=== PATIENT | female | born 1970 | race Caucasian/White ===

== ENCOUNTER 2025-02-01 12:12 | Observation (INO) ==
[2025-02-01 13:26] LABS: Basophils # (auto) 0.04 K/uL (0.00-0.20); Basophils % (auto) 0.6 %; Eosinophils # (auto) 0.07 K/uL (0.00-0.50); Hematocrit (blood only) 40.9 % (37.0-47.0); Hemoglobin 13.7 g/dl (12.0-16.0); Immature Granulocytes # (auto) 0.02 K/uL (0.01-0.20); Immature Granulocytes % (auto) 0.3 %; Lymphocytes # (auto) 2.37 K/uL (1.20-3.40); Lymphocytes % (auto) 35.5 %; Mean Corpuscular Hemoglobin 26.7 pg (25.0-34.0); Mean Corpuscular Hgb Conc 33.5 g/dL (32.0-36.0); Mean Corpuscular Volume 79.7 fL (80.0-100.0); Monocytes # (auto) 0.38 K/uL (0.11-0.59); Monocytes % (auto) 5.7 %; Neutrophils % (auto) 56.9 %; Platelet Count 254 K/uL (130-400); RDW Standard Deviation 37.1 fL (36.4-46.3); Red Blood Count 5.13 M/uL (4.20-5.40); White Blood Count 6.68 K/ul (4.8-10.8)
[2025-02-01 13:47] LABS: Albumin Level 4.4 gm/dl (3.4-5.0); Anion Gap 9 (3-11); Bilirubin,Total 0.9 mg/dl (0.2-1.0); Calcium 9.7 mg/dl (8.6-10.3); Carbon Dioxide 27 mmol/L (21-32); Chloride 102 mmol/L (98-107); Partial Thromboplastin Time 27 Seconds (21-31); Potassium 3.9 mmol/L (3.5-5.1); Prothrombin Time 10.6 Seconds (9.0-12.0); Sodium 138 mmol/L (136-145)
[2025-02-01 13:48] LABS: Troponin I High Sensitivity < 2.3 pg/ml (0-14)
[2025-02-01 13:53] LABS: Alanine Aminotransferase 16 U/L (7-52); Albumin Globulin Ratio 1.5 (0.9-2); Alkaline Phosphatase 46 U/L (34-104); Aspartate Aminotransferase 17 U/L (13-39); BUN Creatinine Ratio 20.6 (10-20); Blood Urea Nitrogen 13 mg/dl (6-23); Globulin 2.9 gm/dl (2.5-4.0); Glucose 171 mg/dl (70-99(Fasting)); Total Protein 7.3 gm/dl (6.0-8.3)
--- NOTE | 2025-02-01 14:12 | XRay Report ---
XR chest 1V not portable CLINICAL HISTORY: Chest pain, nonspecific COMPARISON STUDY: None FINDINGS: Heart size and pulmonary vasculature are normal. No effusion, consolidation, or pneumothora x. No acute osseous finding seen. IMPRESSION: No acute findings. ACT 112: Negative or not required by law. Electronically signed by: Zafar Banda M.D. 02/01/2025 2:11 PM
[2025-02-01 15:03] LABS: Adenovirus PCR Not Detected (NotDetected); Bordetella parapertussis PCR Not Detected (NotDetected); Bordetella pertussis PCR Not Detected (NotDetected); Chlamydia pneumoniae PCR Not Detected (NotDetected); Coronavirus 229E PCR Not Detected (NotDetected); Coronavirus CoV-2 (COVID19)PCR Not Detected (NotDetected); Coronavirus HKU1 PCR Not Detected (NotDetected); Coronavirus NL63 PCR Not Detected (NotDetected); Coronavirus OC43PCR Not Detected (NotDetected); Human Metapneumovirus PCR Not Detected (NotDetected); Influenza A PCR Not Detected (NotDetected); Influenza B PCR Not Detected (NotDetected); Mycoplasma pneumoniae PCR Not Detected (NotDetected); Parainfluenza Virus 1 PCR Not Detected (NotDetected); Parainfluenza Virus 2 PCR Not Detected (NotDetected); Parainfluenza Virus 3 PCR Not Detected (NotDetected); Parainfluenza Virus 4 PCR Not Detected (NotDetected); Respiratory Syncytial VirusPCR Not Detected (NotDetected); Rhinovirus/Enterovirus PCR Not Detected (NotDetected)
--- NOTE | 2025-02-01 18:17 | Emergency Department Note ---
Impression & Plan Chest pain ED Provider Note NAME: ULICES VÁSQUEZ AGE: 55 SEX: F : 1970 ARRIVES VIA: Ambulance INFORMANT: Patient, ED PROVIDER(S): Ag Walker DO CHIEF COMPLAINT: Chest pain HPI: The patient is a 55-year-old female who presented to the emergency department for an evaluation of chest pain. The patient describes anterior chest pain with radiation to the arm as well as the jaw. She states it is intermittent. It is sometimes worsened with exertion. She called 911 today and presented by ambulance. She was treated with nitroglycerin prior to arrival with some improvement of her symptoms. The patient denies having any lower extremity swelling greater than usual. She denies having any abdominal pain. ROS: See above HPI for pertinent positives & negatives. A total of 10 systems reviewed and were otherwise negative. PAST MEDICAL HISTORY: See Below PAST SURGICAL HISTORY: See Below FAMILY HISTORY: See Below SOCIAL HISTORY: See Below HOME MEDICATIONS: See Below ALLERGIES: See Below VITALS: See Below PHYSICAL EXAMINATION: GENERAL: Patient is awake alert in no acute distress patient is resting comfortably and showing no signs of anxiety EYES: The conjunctivae are clear. The pupils are round and reactive. EARS, NOSE, MOUTH AND THROAT: The nose is without any evidence of any deformity. NECK: The neck is nontender and supple. RESPIRATORY: Normal respiratory effort is noted there is no evidence of wheezing rhonchi or rales CARDIOVASCULAR: Regular rate and rhythm noted there no murmurs rubs or gallops normal S1 normal S2. GASTROINTESTINAL: The abdomen is soft. Abdomen is nontender. MUSCULOSKELETAL/EXTREMITIES: There is no evidence of gross deformity full range of motion is noted in the hips and shoulders. SKIN: There is no obvious evidence of any rash. There are no petechiae, pallor or cyanosis noted. NEUROLOGIC: Patient is awake alert and oriented x3 MEDICAL DECISION MAKING: The patient is a 55-year-old female who presented to the emergency department for an evaluation of chest pain. The patient describes anterior chest pain with radiation to the arm. It was associated with exertion. She was treated with nitroglycerin prior to arrival. She is allergic to aspirin and was unable to take this medication. I discussed the patient's laboratory and radiographic studies with her. I discussed the limitations of the emergency department workup for chest pain with her. Ultimately she was found to have an elevated heart score. I feel that she would be a better candidate for inpatient management. For this reason I discussed her condition with the on-call [facility] hospitalist. They have agreed to evaluate the patient in the emergency department for further management and disposition. Triage Nursing notes reviewed. Prior medical records reviewed Vital Signs: reviewed and remarkable for no significant abnormalities Differential diagnosis: Cardiac ischemia, aortic dissection, pulmonary embolism, pneumothorax, pneumonia, pericarditis, myocarditis, esophageal rupture, GERD, cholecystitis, pancreatitis, musculoskeletal, as well as other pathologies. ER treatment provided: See below Diagnostics interpreted by me: ECG: EKG was obtained in the emergency department. My interpretation is normal sinus rhythm at 82 bpm. Early transition was noted. There was no acute ST segment abnormalities noted. Cardiac Monitoring: An order was placed for continuous cardiac monitoring. The monitor shows a rate of 79 bpm with sinus rhythm. Laboratory studies: As stated above and show below. Imaging studies: See below. Radiographic imaging was reviewed by myself Consultation(s): I discussed this case with the on-call [facility] hospitalist, Dr. Arellano. Past Med/Surg History Problem List (Updated 02/01/25 @ 21:51 by Ag Walker DO) Chest pain (Acute) Complex renal cyst Incontinence (Chronic) Anal lesion Mesenteric lymphadenitis Pelvic floor dysfunction Bladder infection Hematuria (Acute) Diabetes (Chronic) Stomach problems (Chronic) Migraine (Chronic) Abdominal pain (Acute) Back strain (Acute) Dehydration (Acute) Headache (Acute) Social History Smoking Status: Former smoker Feels Safe at Home: Yes Allergies Allergies Allergy/AdvReac Type Severity Reaction Status Date / Time lidocaine [From Lidoderm] Allergy Severe Rash Verified 02/01/25 20:58 bupropion Allergy Unknown headache Verified 11/11/24 10:15 eletriptan Allergy Unknown RASH Unverified 11/11/24 10:15 lamotrigine Allergy Unknown UNKNOWN Unverified 11/11/24 10:15 latex Allergy Unknown UNKNOWN Verified 11/11/24 10:15 NSAIDS (Non-Steroidal Allergy Unknown UNKNOWN Verified 11/11/24 10:15 Anti-Inflamma sumatriptan Allergy Unknown MIGRAINES Unverified 11/11/24 10:15 WORSE tramadol Allergy Unknown headache Verified 11/11/24 10:15 nitrofurantoin AdvReac Severe Vomiting Verified 02/01/25 20:58 vibegron [From Gemtesa] AdvReac Severe Vomiting Verified 02/01/25 20:58 semaglutide [From Ozempic] AdvReac Intermediate Nausea Verified 11/11/24 10:15 AMITRITYLINE Allergy Unknown UNKNOWN Uncoded 11/11/24 10:15 Home Meds Home Medications Medication Instructions Recorded Confirmed acetaminophen 500 mg tablet 1,000 mg PO Q6H PRN Fever Or Pain 02/01/25 02/01/25 (Tylenol Extra Strength) brimonidine 0.1 % eye drops 1 drp OPB BID 02/01/25 02/01/25 (Alphagan P) dorzolamide 2 % eye drops 1 drp OPB BID 02/01/25 02/01/25 lifitegrast 5 % eye drops in a 1 drp OPB BID 02/01/25 02/01/25 dropperette (Xiidra) lisinopril 10 mg tablet 10 mg PO QAM 02/01/25 02/01/25 magnesium oxide 400 mg (241.3 mg 400 mg PO HS 02/01/25 02/01/25 magnesium) tablet metformin 500 mg tablet,extended 1,000 mg PO BIDM 02/01/25 02/01/25 release 24 hr omeprazole 20 mg capsule,delayed 20 mg PO AMHS 02/01/25 02/01/25 release pravastatin 40 mg tablet 40 mg PO QPM 02/01/25 02/01/25 riboflavin (vitamin B2) 400 mg 400 mg PO QAM 02/01/25 02/01/25 tablet tamsulosin 0.4 mg capsule 0.4 mg PO QAM 02/01/25 02/01/25 timolol maleate (PF) 0.5 % eye 1 drp OPB BID 02/01/25 02/01/25 drops in a dropperette Results & Data (ED) Vital Signs Vital Signs - 24 hr 02/01/25 12:27 02/01/25 17:26 02/01/25 17:54 Temperature 36.7 C Temperature Source Temporal Artery Scan Pulse Rate 91 H 75 Pulse Rate [Apical] 80 Pulse Rate from SpO2 Sensor Respiratory Rate 20 16 Blood Pressure 145/86 H Blood Pressure [Right Arm] 148/96 H Blood Pressure Mean 105 Blood Pressure Mean [Right Arm] 113 Blood Pressure Position Sitting Pulse Oximetry 96 96 Oxygen Delivery Method Room Air Sepsis Recent Fever Within 48 Hours No Sepsis New/Unexplained Change in Mental Status N/A Sepsis Action Taken by Nursing No Action Required 02/01/25 18:30 02/01/25 19:03 02/01/25 20:45 Temperature Temperature Source Pulse Rate 82 79 77 Pulse Rate [Apical] Pulse Rate from SpO2 Sensor 82 79 77 Respiratory Rate 22 19 12 Blood Pressure 136/95 153/109 H Blood Pressure [Right Arm] Blood Pressure Mean 108 123 Blood Pressure Mean [Right Arm] Blood Pressure Position Pulse Oximetry 93 95 95 Oxygen Delivery Method Sepsis Recent Fever Within 48 Hours Sepsis New/Unexplained Change in Mental Status Sepsis Action Taken by Nursing 02/01/25 21:02 02/01/25 21:21 Temperature Temperature Source Pulse Rate 80 79 Pulse Rate [Apical] Pulse Rate from SpO2 Sensor Respiratory Rate 18 Blood Pressure 151/96 H Blood Pressure [Right Arm] Blood Pressure Mean 111 Blood Pressure Mean [Right Arm] Blood Pressure Position Pulse Oximetry 94 Oxygen Delivery Method Sepsis Recent Fever Within 48 Hours Sepsis New/Unexplained Change in Mental Status Sepsis Action Taken by [facility]pc Medications Current Medication List: was personally reviewed by me Laboratory Data Attestation: I reviewed the patient's lab results. 02/01/25 13:06 02/01/25 13:06 Lab Results 02/01/25 02/01/25 02/01/25 Range/Units 13:06 19:14 21:01 WBC 6.68 (4.8-10.8) K/ul RBC 5.13 (4.20-5.40) M/uL Hgb 13.7 (12.0-16.0) g/dl Hct 40.9 (37.0-47.0) % MCV 79.7 L (80.0-100.0) fL MCH 26.7 (25.0-34.0) pg MCHC 33.5 (32.0-36.0) g/dL RDW Std Deviation 37.1 (36.4-46.3) fL RDW Coeff of Marcia 13.0 (11.5-14.5) % Plt Count 254 (130-400) K/uL MPV 11.0 (9.4-12.4) fL Immature Gran % (Auto) 0.3 % Neut % (Auto) 56.9 % Lymph % (Auto) 35.5 % [place] % (Auto) 5.7 % Eos % (Auto) 1.0 % Baso % (Auto) 0.6 % Neut # (Auto) 3.80 (1.40-6.50) K/uL Lymph # (Auto) 2.37 (1.20-3.40) K/uL [place] # (Auto) 0.38 (0.11-0.59) K/uL Eos # (Auto) 0.07 (0.00-0.50) K/uL Baso # (Auto) 0.04 (0.00-0.20) K/uL Immature Gran # (Auto) 0.02 (0.01-0.20) K/uL PT 10.6 (9.0-12.0) Seconds INR 1.0 (0.9-1.1) APTT 27 (21-31) Seconds PTT Ratio 1.0 Sodium 138 (136-145) mmol/L Potassium 3.9 (3.5-5.1) mmol/L Chloride 102 (98-107) mmol/L Carbon Dioxide 27 (21-32) mmol/L Anion Gap 9 (3-11) BUN 13 (6-23) mg/dl Creatinine 0.63 (0.6-1.2) mg/dl Est Cr Clr Drug Dosing Not Reportable eGFR 104.05 BUN/Creatinine Ratio 20.6 H (10-20) Glucose 171 H (70-99(Fasting)) mg/dl POC Glucose 139 H (70-99) mg/dl Calcium 9.7 (8.6-10.3) mg/dl Total Bilirubin 0.9 (0.2-1.0) mg/dl AST 17 (13-39) U/L ALT 16 (7-52) U/L Alkaline Phosphatase 46 (34-104) U/L Troponin I High Sens < 2.3 < 2.3 (0-14) pg/ml Total Protein 7.3 (6.0-8.3) gm/dl Albumin 4.4 (3.4-5.0) gm/dl Globulin 2.9 (2.5-4.0) gm/dl Albumin/Globulin Ratio 1.5 (0.9-2) Adenovirus (PCR) Not Detected (NotDetected) B. pertussis DNA (PCR) Not Detected (NotDetected) B.parapertussis DNA PCR Not Detected (NotDetected) C. pneumoniae DNA (PCR) Not Detected (NotDetected) Coronavirus OC43 (PCR) Not Detected (NotDetected) Coronavirus HKU1 (PCR) Not Detected (NotDetected) Coronavirus 229E (PCR) Not Detected (NotDetected) SARS-CoV-2 (PCR) Not Detected (NotDetected) Coronavirus NL63 (PCR) Not Detected (NotDetected) Human Metapneumovir PCR Not Detected (NotDetected) Influenza Type A (PCR) Not Detected (NotDetected) Influenza Type B (PCR) Not Detected (NotDetected) M. pneumoniae (PCR) Not Detected (NotDetected) Parainfluenza 1 (PCR) Not Detected (NotDetected) Parainfluenza 2 (PCR) Not Detected (NotDetected) Parainfluenza 3 (PCR) Not Detected (NotDetected) Parainfluenza 4 (PCR) Not Detected (NotDetected) RSV (PCR) Not Detected (NotDetected) Entero/Rhino (PCR) Not Detected (NotDetected) Imaging Data Attestation: I personally reviewed and interpreted this imaging study as follows: My Impression: 1 view chest x-ray was obtained in the emergency department. My interpretation is no free air or definite infiltrate, final report below. Radiologist's Impression: Chest X-Ray 02/01/25 12:31 XR chest 1V not portable CLINICAL HISTORY: Chest pain, nonspecific COMPARISON STUDY: None FINDINGS: Heart size and pulmonary vasculature are normal. No effusion, consolidation, or pneumothorax. No acute osseous finding seen. IMPRESSION: No acute findings. ACT 112: Negative or not required by law. Electronically signed by: Zafar Banda M.D. 02/01/2025 2:11 PM Discharge Plan Visit Data Chief Complaint: Chest Pain ED Provider: Ag Walker Discharge Problem: Chest pain Patient Disposition: Being Evaluated by Hospitalist Forms Stand Alone Forms: My [facility] Prescriptions Prescriptions: No Action lisinopril 10 mg tablet 10 mg PO QAM metformin 500 mg tablet extended release 24 hr 1,000 mg PO BIDM dorzolamide 2 % drops 1 drp OPB BID riboflavin (vitamin B2) 400 mg Tablet 400 mg PO QAM timolol maleate (PF) 0.5 % dropperette 1 drp OPB BID Xiidra 5 % dropperette 1 drp OPB BID pravastatin 40 mg tablet 40 mg PO QPM magnesium oxide 400 mg (241.3 mg magnesium) tablet 400 mg PO HS omeprazole 20 mg capsule,delayed release(DR/EC) 20 mg PO AMHS brimonidine [Alphagan P] 0.1 % drops 1 drp OPB BID acetaminophen [Tylenol Extra Strength] 500 mg Tablet 1,000 mg PO Q6H PRN (Reason: Fever Or Pain) tamsulosin 0.4 mg capsule 0.4 mg PO QAM Referrals Referrals: Shikha Deras MD [Primary Care Provider] -
--- NOTE | 2025-02-01 20:39 | History & Physical Report ---
Date of Service February 01, 2025 Assessment & Plan (1) Chest pain: (2) Type 2 diabetes mellitus: Plan 55-year-old female PMHx T2DM complicated by gastroparesis, GERD, and HLD presenting for chest pain x 4 days. ED evaluation reveals no leukocytosis, normal H&H, grossly CMP BUN/creatinine ratio 20.6, and troponin x 2 < 2.3; BioFire negative; CXR WNL; EKG normal sinus rhythm at 82 bpm. 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 History of panic attacks and states this feels similar; has not had a panic attack in "years". - EKG NSR, rate 82 bpm; Trop x 2 < 2.3; Echo pending - CBC WNL, CMP WNL with exception of ratio 20.6; Lipids pending am, on pravastatin at baseline - Tylenol prn pain/fever; Maalox 30mL po q4hr indigestion - Psych liaison consult placed to discuss stress/history of panic- appreciate input + recs #T2DM H/o DMT2; home regimen of metformin - A1c pending; continue metformin - No SSI added at admission; add if prolonged stay - Adjust regimen as needed #GERD- Omeprazole Dispo: Admit, med/tele VTE Prophylaxis: Lovenox This document was dictated utilizing [employer]. Please excuse any grammatical errors that may be secondary to use of this software. Admission and Anticipated Discharge Date Admission Date: 02/01/2025 History of Present Illness Chief Complaint: Chest pain Primary Care Provider: Shikha Deras MD 55-year-old female PMHx T2DM complicated by gastroparesis, GERD, and HLD presenting for chest pain x 4 days. Patient arrived via EMS. Chest pain, hea daches, neck pain, and L arm numbness/tingling going for 4 days. States that she has a history of migraines which has been ongoing since . Across forehead, without vision changes from baseline. Patient states that the chest pain is mainly localized to her left chest without radiation, it does cause her to have some SOB. States that the pain comes and goes, is not triggered by anything and can last for duration of 10 minutes to multiple hours. Sometimes when she is standing she feels as though she gets palpitations. She does have some dizziness also with history of vertigo, seems to just have the dizziness feels slightly different. Patient reports that she has a history of panic attacks and she has been under a lot of increased stress over the past week. Prior panic attacks years ago, but started as chest pain and headaches so she thinks that this may be similar. Overall denying abdominal pain, N/V/D/C, weakness, syncope, LUTS, or fever/chills. States she came to the hospital today because she had a ride to get a vomiting. ED evaluation reveals no leukocytosis, normal H&H, grossly CMP BUN/creatinine ratio 20.6, and troponin x 2 < 2.3; BioFire negative; CXR WNL; EKG normal sinus rhythm at 82 bpm. 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 Please see Dr. Arellano's attestation for adjustments/additions to treatment plan. Allergies Allergy/AdvReac Type Severity Reaction Status Date / Time lidocaine [From Lidoderm] Allergy Severe Rash Verified 02/01/25 20:58 amitriptyline Allergy Unknown Unknown Verified 02/02/25 00:05 bupropion Allergy Unknown headache Verified 11/11/24 10:15 eletriptan Allergy Unknown RASH Unverified 11/11/24 10:15 lamotrigine Allergy Unknown UNKNOWN Unverified 11/11/24 10:15 latex Allergy Unknown UNKNOWN Verified 11/11/24 10:15 NSAIDS (Non-Steroidal Allergy Unknown UNKNOWN Verified 11/11/24 10:15 Anti-Inflamma sumatriptan Allergy Unknown MIGRAINES Unverified 11/11/24 10:15 WORSE tramadol Allergy Unknown headache Verified 11/11/24 10:15 nitrofurantoin AdvReac Severe Vomiting Verified 02/01/25 20:58 vibegron [From Gemtesa] AdvReac Severe Vomiting Verified 02/01/25 20:58 semaglutide [From Ozempic] AdvReac Intermediate Nausea Verified 11/11/24 10:15 Home Medications Medication Instructions Recorded Confirmed Type acetaminophen 500 mg tablet 1,000 mg PO Q6H PRN Fever Or Pain 02/01/25 02/01/25 History (Tylenol Extra Strength) brimonidine 0.1 % eye drops 1 p OPB BID 02/01/25 02/01/25 History (Alphagan P) dorzolamide 2 % eye drops 1 drp OPB BID 02/01/25 02/01/25 History lifitegrast 5 % eye drops in a 1 drp OPB BID 02/01/25 02/01/25 History dropperette (Xiidra) lisinopril 10 mg tablet 10 mg PO QAM 02/01/25 02/01/25 History magnesium oxide 400 mg (241.3 mg 400 mg PO HS 02/01/25 02/01/25 History magnesium) tablet metformin 500 mg tablet,extended 1,000 mg PO BIDM 02/01/25 02/01/25 History release 24 hr omeprazole 20 mg capsule,delayed 20 mg PO AMHS 02/01/25 02/01/25 History release pravastatin 40 mg tablet 40 mg PO QPM 02/01/25 02/01/25 History riboflavin (vitamin B2) 400 mg 400 mg PO QAM 02/01/25 02/01/25 History tablet tamsulosin 0.4 mg capsule 0.4 mg PO QAM 02/01/25 02/01/25 History timolol maleate (PF) 0.5 % eye 1 drp OPB BID 02/01/25 02/01/25 History drops in a dropperette hydroxyzine HCl 25 mg tablet 25 mg PO TID PRN anxiety #30 tabs 02/02/25 Rx Past Med/Surg History Problem List (Updated 02/01/25 @ 22:16 by Florecita Matthew PA-C) Type 2 diabetes mellitus Chest pain (Acute) Complex renal cyst Incontinence (Chronic) Anal lesion Mesenteric lymphadenitis Pelvic floor dysfunction Bladder infection Hematuria (Acute) Diabetes (Chronic) Stomach problems (Chronic) Migraine (Chronic) Abdominal pain (Acute) Back strain (Acute) Dehydration (Acute) Headache (Acute) Social History Smoking Status: Never smoker Second Hand Exposure: No; Do You Dip or Chew Tobacco: No; Hx Alcohol Use: Yes Alcohol type: wine Hx Substance Use: No Preferred Language: Jordanian Communication Ability: Effective Field Marketing 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 Required: No Beliefs That Will Affect Care: Evangelical Evangelical Beliefs: Restorationist Current Living Situation: Spouse Feels Safe at Home: Yes Assistive Devices: Cane Review of Systems Review of Systems: All systems reviewed & are unremarkable except as noted in Subjective Physical Exam Physical Exam: General: No acute distress Skin: Warm and dry Head: Normocephalic, atraumatic Eyes: PERRL, conjunctivae clear, sclera non-icteric ENT: External ear and ear canal without swelling; nose atraumatic; good dentition, tongue normal appearance, pharynx normal Neck: Supple, no LAD Cardio: RRR, no M/G/R, S1 and S2 normal Resp: No respiratory distress, Lungs CTA in all lobes bilaterally, no wheezes, rales, or rhonchi Abdomen: Soft, symmetric, nontender; no distention; No masses or hepatosplenomegaly; Bowel sounds normoactive MSK: No deformities; pulses palpable and equal; no edema. Neuro: Awake, alert; CN grossly intact Psych: Appropriate mood and affect; good judgement and insight. present in room at time of visit. Results & Data Results & Data Vital Signs (Past 12 Hours) Vital Signs Temp Pulse Pulse Resp BP BP Pulse Ox 02/01/25 19:03 79 19 136/95 95 02/01/25 18:30 82 22 93 02/01/25 17:54 75 02/01/25 17:26 80 16 148/96 H 96 02/01/25 12:27 36.7 C 91 H 20 145/86 H 96 O2 Del Method 02/01/25 19:03 02/01/25 18:30 02/01/25 17:54 02/01/25 17:26 Room Air 02/01/25 12:27 Laboratory Results 02/01/25 02/01/25 19:14 13:06 WBC 6.68 RBC 5.13 Hgb 13.7 Hct 40.9 MCV 79.7 L MCH 26.7 MCHC 33.5 RDW Std Deviation 37.1 RDW Coeff of Marcia 13.0 Plt Count 254 MPV 11.0 Immature Gran % (Auto) 0.3 Neut % (Auto) 56.9 Lymph % (Auto) 35.5 [place] % (Auto) 5.7 Eos % (Auto) 1.0 Baso % (Auto) 0.6 Neut # (Auto) 3.80 Lymph # (Auto) 2.37 [place] # (Auto) 0.38 Eos # (Auto) 0.07 Baso # (Auto) 0.04 Immature Gran # (Auto) 0.02 PT 10.6 INR 1.0 APTT 27 PTT Ratio 1.0 Sodium 138 Potassium 3.9 Chloride 102 Carbon Dioxide 27 Anion Gap 9 BUN 13 Creatinine 0.63 Est Cr Clr Drug Dosing Not Reportable eGFR 104.05 BUN/Creatinine Ratio 20.6 H Glucose 171 H Calcium 9.7 Total Bilirubin 0.9 AST 17 ALT 16 Alkaline Phosphatase 46 Troponin I High Sens < 2.3 < 2.3 Total Protein 7.3 Albumin 4.4 Globulin 2.9 Albumin/Globulin Ratio 1.5 Adenovirus (PCR) Not Detected B. pertussis DNA (PCR) Not Detected B.parapertussis DNA PCR Not Detected C. pneumoniae DNA (PCR) Not Detected Coronavirus OC43 (PCR) Not Detected Coronavirus HKU1 (PCR) Not Detected Coronavirus 229E (PCR) Not Detected SARS-CoV-2 (PCR) Not Detected Coronavirus NL63 (PCR) Not Detected Human Metapneumovir PCR Not Detected Influenza Type A (PCR) Not Detected Influenza Type B (PCR) Not Detected M. pneumoniae (PCR) Not Detected Parainfluenza 1 (PCR) Not Detected Parainfluenza 2 (PCR) Not Detected Parainfluenza 3 (PCR) Not Detected Parainfluenza 4 (PCR) Not Detected RSV (PCR) Not Detected Entero/Rhino (PCR) Not Detected Diagnostic Findings Chest X-Ray 02/01/25 12:31 XR chest 1V not portable CLINICAL HISTORY: Chest pain, nonspecific COMPARISON STUDY: None FINDINGS: Heart size and pulmonary vasculature are normal. No effusion, consolidation, or pneumothorax. No acute osseous finding seen. IMPRESSION: No acute findings. ACT 112: Negative or not required by law. Electronically signed by: Zafar Banda M.D. 02/01/2025 2:11 PM ECG Additional Comments: NSR 82 bpm, IL 172, QRS 94, QT/QTc 368/429, PRT 51/-23/53 Code Status & VTE Plan Code Status Full Supervising Physician Co-Signing Physician Notes Patient seen and examined, chart reviewed, case discussed with KP Matthew and I agree with the assessment and plan as above. In brief, patient is a 55yo female with history of DM ,GERD, HLP presenting with 4 fays of chest pain as well as neck pain, numbness and tingling On exam she is afebrile, HD stable HEENT - MMM Heart- +S1/S2, regular, no m/r/g Lungs - CTA Abd - soft, NT/ND Ext - no edema Labs and images reviewed EKG with no acute ischemic changes Troponin x 2 unremarkable Assessment/plan - atypical chest pain. Suspect is related to stress/anxiety -Check A1C and Lipids -Check 2D echo Remainder as above PG Care Time/CCT Total # of Minutes Spent Total Time Spent with Patient: Total time spent is greater than 50% in coordination of care (as documented) at patient's floor/unit and/or counseling patient: Coding Level of Care Code 68628 INT INP/OBS CARE 3/75MIN Diagnoses Chest pain R07.9 Type 2 diabetes mellitus E11.9
--- OUTSIDE RECORDS SUMMARY | 2025-02-01 21:19 | External Medical Summary | Summary of Care ---
Author Name Unknown Organization [facility] Address [address] [facility] [place] [address] Phone [phone] Care Team Providers Care Cable Rigger Name Role Phone Sabine Spear MD Primary Care Provide r Reason for Visit * Reason Comments Medication Refill Encounter Details Date Type Department Care Team (Late st Contact Info) Description 01/18/2025 Refill Family Medicine [address] [place] [address] Arya Galeano PA-C [address] [place] [address] [place] [id number] HTN, goal below 130/80 Allergies Active Allergy Reactions Criticality Noted Date Comments Alc-Sertraline 10/18/2010 Stomach pain Aloe Hives 06/27/2018 Amitriptyline Hcl 10/18/2010 Elavil worsens migraines; sick Duloxetine Hcl 03/12/2017 [place] lethargic and wanted to give up Dapagliflozin Rash 08/21/2021 Per patient: rash and vaginal irritation 06/2021 Cyclobenzaprine Other (Please comment) 09/18/2017 Dizziness and syncope Hydroxypropyl Methylcellulose Diarrhea 09/08/2024 Ibuprofen Nausea/vomiting 03/02/2008 Sumatriptan Base 10/18/2010 Increased headache, nausea Lamotrigine Hives 10/18/2010 Latex Rash Medium 11/06/2010 Lidoderm Rash 03/04/2009 Neomycin-Bacitracin Zn-Polymyx Hives 06/27/2018 Nitrofurantoin Abdominal pain,Diarrhea 09/08/2024 Nsaids 03/27/2005 naproxen- passes out asa/advil sick indocin nausea Semaglutide(0.25 Or 0.5mg-Dos) Neuro complications (Please comment) 08/24/2024 Visual disturbances Eletriptan Hydrobromide Flushing,Nausea/ vomi ting Medium 08/17/2011 Topamax 12/09/2013 Palpitation, chest pressure Tramadol Hcl Unknown 11/30/2009 Dulaglutide Other (Please comment) 07/25/2020 headaches Bupropion Hcl Neuro complications (Please comment) 10/18/2010 Headache documented as of this encounter (statuses as of 01/19/2025) Medications TYLENOL EXTRA STRENGTH 500 MG PO TABS 2 tabs taken as needed Active BRIMONIDINE TARTRATE 0.2 % OP SOLN Instill into eye 2 times a day. 4 Active TIMOLOL MALEATE 0.5 % OP SOLN 2 times a day. A ctive CANE MISC to use cane as needed to assist with ambulation 1 Each 0 4 Active Additional Information Patient not taking.Reported on 08/25/2024 Multiple Vitamins-Minera ls (MULTIVITAMIN ADULT) TABS Take by mouth. Act josiah Ginkgo Biloba 40 MG Oral Tablet Take 1 Tablet by mouth in the morning and 1 Tablet before bedtime. 2 Active Alphagan P 0.1 % Ophthalmic Solution Instill 1 drop into both eyes twice a day 20 mL 6 11/09/2024 1:50 PM EST 3 Active Omeprazole 20 MG Oral Capsule Delayed Release (PriLOSEC) Take 1 Capsule by mouth in the morning and 1 Capsule before bedtime. 180 Capsule 3 10/27/2024 12:57 PM EST 4 Active FreeStyle Jazmin 2 SensorIndicatio ns:Type 2 diabetes mellitus with hemoglobin A1c goal of less than 7.0% ([facility]) CHANGE EVERY 14 DAYS. USE TO TEST GLUCOSE 6 Each 3 11/19/2024 4:53 PM EST 4 025 Active Magnesium Oxide 400 MG Oral Tablet TAKE ONE TABLET BY MOUTH AT BEDTIME 90 Tablet 1 11/09/2024 1:50 PM EST 4 025 Active metFORMIN HCl ER 500 MG Oral Tablet Extended Release 24 Hour (Glucophage XR)Indications: Type 2 diabetes mellitus with hemoglobin A1c goal of less than 7.0% (HCC) Take 2 Tablets by mouth 2 times a day with morning and evening meals. 360 Tablet 3 12/30/2024 12:51 PM EST 4 Active OneTouch Delica Plus [id number] tions:Type 2 diabetes mellitus with hemoglobin A1c goal of less than 7.0% (HCC) USE TO TEST BLOOD SUGAR ONCE A DAY 100 Each 3 01/13/2025 4:13 PM EST 4 Active Dorzolamide HCl 2 % Ophthalmic Solution (Trusopt Ocumeter Plus) Instill 1 drop into both eyes twice a day 40 mL 6 01/04/2025 5:43 PM EST 4 Active OneTouch Verio In Vitro Strip (Glucose Blood)Indicatio ns:Type 2 diabetes mellitus with hemoglobin A1c goal of less than 7.0% (HCC) USE TO TEST BLOOD SUGAR ONCE A DAY 100 Strip 3 10/12/2024 6:21 AM EST 4 Active Pravastatin Sodium 40 MG Oral Tablet (Pravachol)Radha cations:Dyslipi demia, goal LDL below 100 Take 1 Tablet by mouth every evening. 100 Tablet 1 11/12/2024 11:08 AM EST 4 Active Xiidra 5 % Ophthalmic Solution (Lifitegrast) Instill 1 drop into both eyes twice a day 180 Each 4 12/04/2024 11:39 AM EST 5 Active Timolol Maleate PF 0.5 % Ophthalmic Solution (Timoptic Ocudose) Instill 1 drop into both eyes once a day as needed May use up to 2 times a day. 180 Each 6 12/23/2024 12:24 PM EST 5 Active Riboflavin 400 MG Oral TabletIndicatio ns:Migraine without status migrainosus, not intractable, unspecified migraine type TAKE ONE TABLET BY MOUTH EVERY MORNING 90 Tablet 1 01/14/2025 5:41 PM EST 5 026 Active Lisinopril 10 MG Oral Tablet (Prinivil)Indic ations:HTN, goal below 130/80 Take 1 Tablet by mouth in the morning. 90 Tablet 1 5 Active Lisinopril 10 MG Oral Tablet (Prinivil)Indic ations:HTN, goal below 130/80 Take 1 Tablet by mouth in the morning. 90 Tablet 10/28/2024 1:51 PM EST 4 025 Discontin ued(Refil l) documented as of this encounter (statuses as of 01/19/2025) Active Problems Problem Noted Date Diagnosed Date Primary hypertension 09/04/2024 Chronic angle-closure glaucoma, bilateral, sever e stage 04/10/2024 Incomplete bladder emptying 12/14/2022 Bladder prolapse, female, acquired 12/14/2022 Family hx of melanoma 10/12/2019 Diabetic gastroparalysis 01/12/2019 Type 2 diabetes mellitus wit h hemoglobin A1c goal of less than 7.0% 09/13/2017 Acute angle-closure glaucoma of left eye 016 Gastro-esophageal reflux disease without esophag itis 12/26/2012 Fatty liver 03/23/2010 Overview (04/03/2010): hepatomegaly with fatty infiltration Migraine 03/27/2005 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 Arthritis of hip 03/27/2005 Overview (03/27/2005): SI joint Dyslipidemia, goal LDL below 100 DDD (degenerative disc disease), lumbosacral Bulging discs IBS (irritable bowel syndrome) documented as of this encounter (statuses as of 01/19/2025) Resolved Problems Problem Noted Date Diagnosed Date Resolved Date Gagnon's esophagus with dysplasia 12/14/2022 12/14/2022 Type 2 diabetes mellitus wit h hemoglobin A1c goal of less than 7.0% 09/13/2017 09/13/2017 Impaired fasting glucose 08/04/2016 Gagnon's esophagus 08/17/2015 12/14/19 23 Prediabetes 03/30/2013 07/01/2018 Abdominal pain, epigastric 01/22/2012 0 08/17/2015 Type 2 diabetes mellitus wit h hemoglobin A1c goal of less than 7.0% 10/01/2011 03/30/2013 Overview (03/27/2016): ICD-10 update of inactive term Gastroparesis 10/18/2010 07/14/2019 Nausea 09/06/2010 08/04/2016 Overview (09/24/2017): ICD-10 update of inactive term Abnormal levels of other serum enzymes 06/12/2010 08/17/2015 Overview (09/02/2017): ICD-10 update of inactive term Obesity, Class II, BMI 35-39 .9, isolated (see actual BMI) 05/15/2010 07/04/2018 Overview (05/15/2010): Per Obesity Protocol, #19 Calculus of gallbladder with out mention of cholecystitis or obstruction 03/23/2010 08/04/2016 Overview (04/03/2010): Contracted GB filled with stones DM type 2, not at goal 03/08/200903/08 ADVANCE DIRECTIVE INFORMATION 01/30/2006 10/05/2024 Overview (01/30/2006): Yes, Patient instructed to provide copy of advance directive for provider to review and to be scanned into Electronic Medical Record Vertigo 03/27/2005 08/04/2016 Dyslipidemia, goal to be determined 03/27/2005 04/03/2010 Generalized anxiety disorder 03/27/2005 08/04/2016 Panic disorder 03/27/2005 08/17/2015 Chest pain 03/27/2005 08/17/2015 Overview (03/27/2005): undiagnosed chest pain documented as of this encounter (statuses as of 01/19/2025) Immunizations Name Administration Dates Next Due COVID-19 mRNA, LNP-s, No Pre serve, 2-Dose Series (Moderna) 05/17/2021,04/18/2021 COVID-19, MRNA-LNP, PF, 30 M CG/0.3 mL, 12 YRS AND ABOVE, IM (PFIZER-Comirnaty) 10/14/2023 COVID-19, mRNA, LNP-s, PF, B ooster, 100mcg/0.5mg (Moderna) 11/28/2021 Covid-19, Mrna, Lnp-s, Pf, B ivalent, 50 Mcg, IM, 12 yrs and above (Moderna) 12/14/2022 Hepatitis B, 20+ yrs 03/07/2020,11/02/2019,09/02 Pneumococcal Conjugate Vacci ne, 20-valent ([id number]) 05/22/2022 Pneumococcal Polysaccharide PPV23 (Pneumovax) 10/23/2011 Seasonal Influenza Vac., MDV , IM, 0.5 mL (Fluzone) 08/17/2015,08/04/2014,10/13/2013,09/05,08/17/2011,11/06/2010,08/22/2009 ,10/04/2006 Seasonal Influenza, PF, 6 M & above, IM , (FluLaval or Fluzone) 08/06/2023,08/29/2022,09/12/2021,08/17,09/19/2018,08/28/2017 Seasonal Influenza, Quadriva lent, No Preserve, IM 10/01/2016 Seasonal Influenza, Trivalen t, (IIV3), PF, (Fluzone) 09/03/2024 TD, Preservative Free 04/02/2006 TDAP (age 10 and older)(Boostrix) 08/02/2021 TDAP, Age 7 and older, IM (Adacel) 08/17/2011 Zoster Vaccine Recombinant (Shingrix) 07/14/2020 ,01/14/2020 documented as of this encounter Social History Tobacco Use Types Packs/Day Years Used Date Smoking Tobacco: Former Cigarettes Q uit: 12/02/1996 Smokeless Tobacco: Never Alcohol Use Standard Drinks/Week Comments No 0 (1 standard drink = 0.6 oz pur e alcohol) rare PHQ-2 Answer Date Recorded PHQ-2 Score 0 07/14/2019 Comments No Sex and Gender Information Value Date Recorded Sex Assigned at Not on file Legal Sex Female 6:19 AM EST Gender Identity Not on file Sexual Orientation Not on file 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 file Not on file Not on f ile documented as of this encounter Miscellaneous Notes * Telephone Encounter - Jenny Phillips terence - 01/19/2025 8:19 AM ESTSigned Prescriptions: Disp Refills Lisinopril 10 MG Oral Tablet (Prinivil) 90 Tab*1 Sig: Take 1 Tablet by mouth in the morning.Authorizing Provider: ARYA GALEANO User: JENNY PHILLIPS--- documented in this encounter Plan of Treatment Upcoming Encounters Date Type Department Care Team (Late st Contact Info) Description 03/29/2025 10:30 AM EDT Office Visit Pharmacy, [address] [place] [phone] [place] [address] 04/05/2025 9:30 AM EDT Nutrition Services Nutrition, [facility] [address] [place] [phone] Berenice Beckman RDN [address] [place] [phone] 04/16/2025 10:40 AM EDT Office Visit Family Medicine [address] [place] [phone] Sabine Spear MD [address] [place] [address] [place] [phone] 07/16/2025 10:00 AM EDT Office Visit Gastroenterology [address] [place] [phone] Emi Durbin CRNP [address] [place] [phone] 10/27/2025 11:00 AM EST Imaging Radiology [address] [place] [phone] 12/22/2025 10:20 AM EST Office Visit Dermatology [address] [place] [phone] Liliana Singh PA-C [address] [place] [address] [place] [id number] Scheduled Procedures Name Priority Associated Diagnoses Date/Ti me COLONOSCOPY FLEXIBLE PROXIMA L DIAGNOSTIC Recall History of colonic polyps Health Maintenance Due Date Last Done Comments Cologuard 2014 Fecal Occult Blood Test 2014 Sigmoidoscopy 2014 Depression Screening 07/14/2021 07/14/2020 Diabetic Foot Exam 07/04/2023 07/04/2022, 0 04/03/2021, 01/14/2020, Additional history exists COVID-19 Vaccine ( season) 2024 10/14/2023, 12/14/2022, 11/28/2021, Additional history exists Diabetic Eye Exam 10/23/2024 10/23/2023, , 02/14/2022, Additional history exists HbA1c 07/05/2025 01/05/2025, 11/0 03/2024, 06/09/2024, Additional history exists B-12 10/05/2025 10/05/2024, 11/0 08/2022, 09/20/2021, Additional history exists GFR 10/05/2025 10/05/2024, 09/01, 03/22/2024, Additional history exists Mammogram 10/22/2025 10/22/2024, 10/03, 10/18/2023, Additional history exists Albumin/Creatinine Ratio 10/23/2025 024, 04/25/2023, 05/02/2022, Additional history exists Gagnon's Esophagus Surveilance 08/25/2027 08/25/2024, 08/25/2024, 04/14/2018, Additional history exists Colonoscopy 08/25/2029 08/25/2024, 08/03, 07/27/2020, Additional history exists Colorectal Cancer Screening 08/25/2029 Lipid Panel 10/05/2029 10/05/2024, 04/02, 03/27/2022, Additional history exists DTap/Tdap Vaccines (3 - Td or Tdap) 08/02/2031 08/02/2021, 08/17/2011, 04/02/2006 Hepatitis B Vaccine Completed 03/07/2020, 11/02/2019, 09/02/2019 Zoster Vaccines Completed 07/14/2020, 01/14/2020 Pneumococcal Vaccine: 50+ Years Completed 05/22/2022, 10/23/2011 RETIRED - COLONOSCOPY-EVERY 5 YRS AGES 18-100 Discontinued 08/25/2024, 08/25/2024, 07/27/2020, Additional history exists Influenza Vaccine (FLU shot) Completed 09/03/2024, 08/06/2023, 08/29/2022, Additional history exists HPV (Gardasil) Vaccine Aged Out No lo nger eligible based on patient's age to complete this topic MENINGOCOCCAL (MENACTRA/MENVEO) Aged Out No longer eligible based on patient's age to complete this topic Meningitis B Vaccine (Bexsero/Trumemba) Aged Out No longer eligible based on patient's age to complete this topic documented as of this encounter Medical Devices Not on filedocumented as of this encounter Visit Diagnoses Diagnosis HTN, goal below 130/80 Unspecified essential hypertension Screening mammogram for breast cancer documented in this encounter Advance Directives Documents on File Type Date Recorded Patient Bench Boring Machine Operator Expl anation Power of Mathematics Education Professor 04/07/2023 POWER OF A TTORNEY * Full Code (Latest Code Status on File) Date Activated Date Inactivated Comments 07/02/2018 11:33 AM 07/02/2018 4:17 PM This order re flects the patients wishes and were consensually agreed upon. Care Teams Cable Rigger Relationship Specialty Start Date End Date Sabine Spear MD [address] [place] [address] [place] [phone] PCP - General Family Medicine 12/15/24 documented as of this encounter
--- OUTSIDE RECORDS SUMMARY | 2025-02-01 21:20 | External Medical Summary | Summary of Care ---
Author Name Unknown Organization [facility] Address [address] [place] [address] Phone [phone] Care Team Providers Care Furniture Shampooer Name Role Phone Sabine Spear MD Primary Care Provide r Encounter Details Date Type Department Care Team (Late st Contact Info) Description 12/21/2024 Population Health External Data Unspecified Department Allergies Active Allergy Reactions Criticality Noted Date Comments Alc-Sertraline 10/18/2010 Stomach pain Aloe Hives 06/27/2018 Amitriptyline Hcl 10/18/2010 Elavil worsens migraines; sick Duloxetine Hcl 03/12/2017 [place] lethargic and wanted to give up Dapagliflozin [...] as of this encounter (statuses as of 12/21/2024) Medications TYLENOL EXTRA STRENGTH 500 MG PO [...] hemoglobin A1c goal of less than 7.0% ([facility]) CHANGE EVERY 14 DAYS. USE TO TEST GLUCOSE 6 Each 3 11/19/2024 4:53 PM EST 4 06/01/20 25 Active Riboflavin 400 MG Oral Tablet TAKE ONE TABLET BY MOUTH EVERY MORNING 90 Tablet 1 10/15/2024 12:21 PM EST 4 07/20/20 25 Active Tamsulosin HCl 0.4 MG Oral Capsule (Flomax) take 1 capsule by mouth daily 90 Capsule 1 10/13/2024 6:25 PM EST 4 Active Additional Information Patient taking differently:OralHS, Reported on 10/13/2024 Magnesium Oxide 400 MG Oral Tablet TAKE ONE TABLET BY MOUTH AT BEDTIME 90 Tablet 1 11/09/2024 1:50 PM EST 4 08/10/20 25 Active metFORMIN HCl ER 500 MG Oral Tablet Extended Release 24 Hour (Glucophage XR)Indications: Type 2 diabetes mellitus with hemoglobin A1c goal of less than 7.0% (HCC) Take 2 Tablets by mouth 2 times a day with morning and evening meals. 360 Tablet 3 10/01/2024 12:06 PM EDT 4 Active Lisinopril 10 MG Oral Tablet (Prinivil)Indic ations:HTN, goal below 130/80 Take 1 Tablet by mouth in the morning. 90 Tablet 10/28/2024 1:51 PM EST 4 Active OneTouch Delica Plus [id number] tions:Type 2 diabetes mellitus with hemoglobin A1c goal of less than 7.0% (HCC) USE TO TEST BLOOD SUGAR ONCE A DAY 100 Each 3 10/07/2024 12:49 PM EST 4 Active Dorzolamide HCl 2 % Ophthalmic Solution (Trusopt Ocumeter Plus) Instill 1 drop into both eyes twice a day 40 mL 6 10/07/2024 12:49 PM EST 4 Active OneTouch Verio In [...] 4 12/04/2024 11:39 AM EST 5 Active documented as of this encounter (statuses as of 12/21/2024) Active Problems Problem Noted Date Diagnosed Date [...] as of this encounter (statuses as of 12/21/2024) Resolved Problems Problem Noted Date Diagnosed Date [...] as of this encounter (statuses as of 12/21/2024) Immunizations Name Administration Dates Next Due COVID-19 mRNA, LNP-s, No Pre serve, 2-Dose Series (Moderna) 05/17/2021,04/18/2021 COVID-19, MRNA-LNP, PF, 30 M CG/0.3 mL, 12 YRS AND ABOVE, IM ([employer] [facility]) 10/14/2023 COVID-19, mRNA, LNP-s, PF, B ooster, 100mcg/0.5mg (Moderna) 11/28/2021 Covid-19, Mrna, Lnp-s, Pf, B ivalent, 50 Mcg, IM, 12 yrs and above (Moderna) 12/14/2022 Hepatitis B, 20+ yrs 03/07/2020,11/02/2019,09/02 Pneumococcal Conjugate Vacci ne, 20-valent ([id number]) 05/22/2022 Pneumococcal Polysaccharide PPV23 (Pneumovax) 10/23/2011 Seasonal [...] Start Date 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 Not on file Not on f ile documented as of this encounter Plan of Treatment Upcoming Encounters Date Type Department Care Team (Late st Contact Info) Description 01/05/2025 10:30 AM EST Office Visit Pharmacy, [address] [place] [phone] [place] [address] 01/08/2025 1:00 PM EST Office Visit Gastroenterology [address] [place] [address] Emi Durbin CRNP [address] [place] [phone] 04/05/2025 9:30 AM EDT Nutrition Services Nutrition, [facility] [address] [place] [address] Berenice Beckman, RDN [address] [place] [address] 04/16/2025 10:40 AM EDT Office Visit Family Medicine [address] [place] [phone] Sabine Spear MD [address] [place] [address] [place] [address] 10/27/2025 11:00 AM EST Imaging Radiology [address] [place] [phone] 12/22/2025 10:20 AM EST Office Visit Dermatology [address] [place] [address] Liliana Singh PA-C [address] [place] [address] [place] [address] Scheduled Procedures Name Priority Associated Diagnoses Date/Ti [...] 10/23/2023, , 02/14/2022, Additional history exists HbA1c 04/04/2025 10/05/2024, 07/0 08/2024, 03/06/2024, Additional history exists B-12 10/05/2025 10/05/2024, 1108/2022, 09/20/2021, Additional history exists GFR 10/05/2025 10/05/2024, [...] Not on filedocumented as of this encounter Advance Directives Documents on File Type Date Recorded Patient Environmental Studies Department Chair Expl anation Power of Limousine Driver 04/07/2023 POWER OF A TTORNEY * Full Code (Latest Code Status on File) Date Activated Date Inactivated Comments 07/02/2018 11:33 AM 07/02/2018 4:17 PM This order re flects the patients wishes and were consensually agreed upon. Care Teams Furniture Shampooer Relationship Specialty Start Date End Date Sabine Spear MD [address] [place] [address] [place] [phone] PCP - General Family Medicine 12/15/24 documented as of this encounter
--- OUTSIDE RECORDS SUMMARY | 2025-02-01 21:20 | External Medical Summary | Summary of Care ---
Author Name Unknown Organization [facility] Address [address] [facility] [place] [address] Phone [phone] Care Team Providers Care Clay Hoister Name Role Phone Sabine Spear MD Primary Care Provide r Reason for Referral * Medication Prior Authorization - Closed Specialty Diagnoses / Procedures Referred By Contac t Referred To Contact Diagnoses Migraine without status migrainosus, not intractable, unspecified migraine type Sabine Spear MD [address] [place] [address] [place] [address] Phone: tel: fax: Referral ID Status Reason Start Date Expiration Date Visits Re quested Visits Authorized [id number] Closed [phone] Reason for Visit * Reason Comments Medication Refill Encounter Details Date Type Department Care Team (Late st Contact Info) Description 01/11/2025 Refill Family Medicine [address] [place] [phone] Sabine Spear MD [address] [place] [address] [place] [phone] Migraine without status migrainosus, not intractable, unspecified migraine type* Allergies Active Allergy Reactions Criticality Noted Date Comments Alc-Sertraline 10/18/2010 Stomach pain Aloe Hives 06/27/2018 Amitriptyline Hcl 10/18/2010 Elavil worsens migraines; sick Duloxetine Hcl 03/12/2017 [place] lethargic and wanted to give up Dapagliflozin [...] as of this encounter (statuses as of 01/11/2025) Medications TYLENOL EXTRA STRENGTH 500 MG PO [...] A1c goal of less than 7.0% (HCC) CHANGE EVERY 14 DAYS. USE TO TEST GLUCOSE 6 Each 3 11/19/2024 4:53 PM EST 4 025 Active Tamsulosin HCl 0.4 MG Oral Capsule [...] 3 12/30/2024 12:51 PM EST 4 Active Lisinopril 10 MG Oral Tablet (Prinivil)Indic ations:HTN, goal below 130/80 Take 1 Tablet by mouth in the morning. 90 Tablet 10/28/2024 1:51 PM EST 4 Active OneTouch Delica Plus [id number] tions:Type 2 diabetes mellitus with hemoglobin A1c [...] BY MOUTH EVERY MORNING 90 Tablet 1 5 026 Active Riboflavin 400 MG Oral Tablet TAKE ONE TABLET BY MOUTH EVERY MORNING 90 Tablet 1 10/15/2024 12:21 PM EST 4 025 Discontin ued(Refil l) documented as of this encounter (statuses as of 01/11/2025) Active Problems Problem Noted Date Diagnosed Date [...] as of this encounter (statuses as of 01/11/2025) Resolved Problems Problem Noted Date Diagnosed Date [...] as of this encounter (statuses as of 01/11/2025) Immunizations Name Administration Dates Next Due COVID-19 mRNA, LNP-s, No Pre serve, 2-Dose Series (Moderna) 05/17/2021,04/18/2021 COVID-19, MRNA-LNP, PF, 30 M CG/0.3 mL, 12 YRS AND ABOVE, IM ([facility]) 10/14/2023 COVID-19, mRNA, LNP-s, PF, B ooster, 100mcg/0.5mg (Moderna) 11/28/2021 Covid-19, Mrna, Lnp-s, Pf, B ivalent, 50 Mcg, IM, 12 yrs and above (Moderna) 12/14/2022 Hepatitis B, 20+ yrs 03/07/2020,11/02/2019,09/02 Pneumococcal Conjugate Vacci ne, 20-valent ([id number]) 05/22/2022 Pneumococcal Polysaccharide PPV23 (Pneumovax) 10/23/2011 Seasonal Influenza Vac., MDV , IM, 0.5 mL (Fluzone) 08/17/2015,08/04/2014,10/13/2013,09/05,08/17/2011,11/06/2010,08/22/2009 ,10/04/2006,09/17/2005 Seasonal Influenza, PF, 6 M & above, [...] 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 Thank you, Naz Perez Malt Loader [facility] 01/11/2025,11:17 AM * Telephone Encounter - Sabine Spear MD - 01/11/2025 10:49 AM EST Signed Prescriptions: Disp Refills Riboflavin 400 MG Oral Tablet 90 Tab*1 Sig: TAKE ONE TABLET BY MOUTH EVERY MORNING Authorizing Provider: SABINE SPEAR * Telephone Encounter - Daja Mon CMA - 01/11/2025 8:30 AM ESTPending Prescriptions: Disp Refills Riboflavin 400 MG Oral Tablet 90 Tab*1 Sig: TAKE ONE TABLET BY MOUTH EVERY MORNING * Telephone Encounter - Daja Mon CMA - 01/11/2025 8:30 AM EST Pending Prescriptions: Disp Refills Riboflavin 400 MG Oral Tablet 90 Tab*1 Sig: TAKE ONE TABLET BY MOUTH EVERY MORNING Last Visit: 10/13/2024 (in office), Visit date not found (telemedicine) Next Visit: 04/16/2025 Last date the medication was ordered: 07/20/2024 Patient Active Problem List Diagnosis Migraine Congenital anomaly of eye Arthritis of hip Dyslipidemia, goal LDL below 100 Fatty liver Gastro-esophageal reflux disease without esophagitis DDD (degenerative disc disease), lumbosacral Bulging discs IBS (irritable bowel syndrome) Acute angle-closure glaucoma of left eye Type 2 diabetes mellitus with hemoglobin A1c goal of less than 7.0% (HCC) Diabetic gastroparalysis (HCC) Family hx of melanoma Incomplete bladder emptying Bladder prolapse, female, acquired Chronic angle-closure glaucoma, bilateral, severe stage Primary hypertension Labs: Lab Results Component Value Date/Time CREATININE - [facility] 0.6 10/05/2024 09:40 AM CREATININE - [facility] 0.67 03/22/2024 12:00 AM CREATININE - [facility] 0.7 11/02/2020 09:01 AM CREATININE, RANDOM URINE - [facility] 39 10/23/2024 10:48 AM CREATININE, RANDOM URINE - [facility] 228 01/14/2020 12:11 PM Lab Results Component Value Date/Time POTASSIUM - [facility] 3.9 10/05/2024 09:40 AM POTASSIUM - [facility] 3.6 03/22/2024 12:00 AM POTASSIUM - [facility] 4.2 11/02/2020 09:01 AM Lab Results Component Value Date/Time TSH - [facility] 1.93 09/25/2011 08:35 AM Lab Results Component Value Date/Time LDL CHOLESTEROL (CALCULATED) - [facility] 88 10/05/2024 09:40 AM LDL CHOLESTEROL (CALCULATED) - [facility] 75 03/27/2022 09:58 AM LDL CHOLESTEROL (CALCULATED) - [facility] 79 01/14/2020 12:03 PM LDL CHOLESTEROL (CALCULATED) - [facility] UNINTERPRETABLE RESULT 01/12/2019 02:44 PM LDL CHOLESTEROL (DIRECT MEASURE) - [facility] 70 04/25/2023 03:35 PM LDL CHOLESTEROL (DIRECT MEASURE) - [facility] NOT APPLICABLE 01/14/2020 12:03 PM LDL CHOLESTEROL (DIRECT MEASURE) - [facility] 82 01/12/2019 02:44 PM Lab Results Component Value Date/Time ALT - [facility] 17 10/05/2024 09:40 AM ALT - [facility] 39 (H) 01/14/2020 12:03 PM Hemoglobin AIC Results: Lab Results Component Value Date/Time HEMOGLOBIN A1C - [facility] 8.5 (H) 01/05/2025 10:44 AM HEMOGLOBIN A1C - [facility] 8.3 (H) 10/05/2024 09:40 AM HEMOGLOBIN A1C - [facility] 8.3 (H) 06/09/2024 02:14 PM HEMOGLOBIN A1C - [facility] 6.8 (H) 11/02/2020 09:01 AM HEMOGLOBIN A1C - [facility] 6.7 (H) 07/14/2020 12:13 PM HEMOGLOBIN A1C - [facility] 6.7 (H) 01/14/2020 12:03 PM * Telephone Encounter - Abraham Burnette - 01/11/2025 7:38 AM ESTPending Prescriptions: Disp Refills Riboflavin 400 MG Oral Tablet 90 Tab*1 Sig: TAKE ONE TABLET BY MOUTH EVERY MORNING documented in this encounter Plan of Treatment Upcoming Encounters Date Type Department Care Team (Late st Contact Info) Description 03/29/2025 10:30 AM EDT Office Visit Pharmacy, [address] [place] [phone] [place] [address] 04/05/2025 9:30 AM EDT Nutrition Services Nutrition, [facility] [address] [place] [address] Berenice Beckman, [place] [address] [place] [address] 04/16/2025 10:40 AM EDT Office Visit Family Medicine [address] [place] [phone] Sabine Spear MD [address] [place] [address] [place] [address] 07/16/2025 10:00 AM EDT Office Visit Gastroenterology [address] [place] [address] Emi Durbin CRNP [address] [place] [place] [address] 10/27/2025 11:00 AM EST Imaging Radiology [address] [place] [address] 12/22/2025 10:20 AM EST Office Visit Dermatology [address] [place] [address] Liliana Singh PA-C [address] [place] [address] [place] [address] Scheduled Procedures Name Priority Associated Diagnoses Date/Ti [...] 02/14/2022, Additional history exists HbA1c 07/05/2025 01/05/2025, 03/2024, 06/09/2024, Additional history exists B-12 10/05/2025 10/05/2024, 08/2022, 09/20/2021, Additional history exists GFR 10/05/2025 [...] as of this encounter Visit Diagnoses Diagnosis Migraine without status migrainosus, not intractable, unspecified migraine type- Primary Screening mammogram for breast cancer documented in this encounter Advance Directives Documents on File Type Date Recorded Patient Disaster Or Damage Control Specialist Expl anation Power of Manager Fire 04/07/2023 POWER OF A TTORNEY * Full Code (Latest Code Status on File) Date Activated Date Inactivated Comments 07/02/2018 11:33 AM 07/02/2018 4:17 PM This order re flects the patients wishes and were consensually agreed upon. Care Teams Clay Hoister Relationship Specialty Start Date End Date Sabine Spear MD [address] [place] [address] [place] [phone] PCP - General Family Medicine 12/15/24 documented as of this encounter
--- OUTSIDE RECORDS SUMMARY | 2025-02-01 21:20 | External Medical Summary | Summary of Care ---
Author Name Unknown Organization [facility] Address [address] [facility] [place] [address] Phone [phone] Care Team Providers Care Warp Tester Name Role Phone Sabine Spear MD Primary Care Provide r Reason for Visit * Reason Comments Dosage Adjustment In Person (Anticoag Cl inic) Diabetes Follow-Up Encounter Details Date Type Department Care Team (Late st Contact Info) Description 01/05/2025 10:30 AM EST Office Visit Pharmacy, [address] [place] [address] [place] [address] Type 2 diabetes mellitus with hemoglobin A1c goal of less than 7.0% ([facility])* Allergies Active Allergy Reactions Criticality Noted Date Comments Alc-Sertraline 10/18/2010 Stomach pain Aloe Hives 06/27/2018 Amitriptyline Hcl 10/18/2010 Elavil worsens migraines; sick Duloxetine Hcl 03/12/2017 [place] lethargic and wanted to give up Dapagliflozin [...] as of this encounter (statuses as of 01/05/2025) Medications TYLENOL EXTRA STRENGTH 500 MG PO [...] PM EST 4 Active OneTouch Delica Plus [id number] tions:Type 2 diabetes mellitus with hemoglobin A1c [...] 180 Each 4 12/04/2024 11:39 AM EST Active Timolol Maleate PF 0.5 % Ophthalmic Solution (Timoptic Ocudose) Instill 1 drop into both eyes once a day as needed May use up to 2 times a day. 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 Medication Therapy Disease Management [facility] - Diabetes Management Progress Note Amanda Callejas, identified by name and date of , is a 54 year old female being seen for diabetes management/education. Patient presents for return diabetic visit. DIABETES: Current diabetic medications: Metformin ER 500 mg - 2 tablets BID eGFR > 90 as of 10/05/24 A1c goal less than 7% Medication Injection Site: N/A Lifestyle: Diet: unchanged Glucose Review/SMBG: Readings obtained from patient device Hypoglycemia: Does your blood sugar go below 70 mg/dL? No Hyperglycemia symptoms present: none Recent Labs Units 10/05/24 0940 06/09/24 1414 03/06/24 1010 HEMOGLOBIN A1C - [facility] % 8.3* 8.3* 8.8* Recent Labs Units 10/05/24 0940 09/10/24 1612 03/22/24 0000 ESTIMATED GLOMERULAR FILTRATION RATE - [facility] mL/min >90 >90 >90 CREATININE - [facility] mg/dL 0.6 0.7 0.67 HYPERTENSION: Patient on ACEi/ARB: yes BP Readings from Last 3 Encounters: 10/13/24 134/82 09/10/24 118/76 09/04/24 144/88 Blood pressure at goal: yes HYPERLIPIDEMIA: Recent Labs Units 10/05/24 0940 04/25/23 1535 LDL CHOLESTEROL (CALCULATED) - [facility] mg/dL 88 -- LDL CHOLESTEROL (DIRECT MEASURE) - [facility] mg/dL -- 70 Does patient have clinical ASCVD? No, is patient LDL less than 70mg/dL? Yes HEALTH MAINTENANCE REVIEW: Health Maintenance Due Topic Date Due Depression Screening 07/14/2021 Diabetic Foot Exam 07/04/2023 COVID-19 Vaccine ( season) 2024 Diabetic Eye Exam 10/23/2024 ASSESSMENT & PLAN: ICD-10-CM 1. Type 2 diabetes mellitus with hemoglobin A1c goal of less than 7.0% ([facility]) E11.9 Complicating factors: Gastroparesis Visual impairment Medication intolerance: Trulicity (GI upset, migraines) Farxiga (rash on LE) Ozempic - JENNIFER BG Readings - Blood sugars reviewed per Swivl download. Reviewed with patient, slight improvement noted. Due for updated A1c, ordered to obtain. Medications - Reviewed current regimen, patient is adherent to regimen. Tolerating well. Diet, Exercise, Lifestyle - Patient notes to significant increase in family stress expected to comeup this month. We discussed ensuring patient keeps on track with diet during these times, preparingDM friendly choices to have readily available. Discussed keeping busy with activities around the house. Notes to support system of tenriism and . Will plan to f/u upon A1c. Encouraged to continue to focus on diet modifications at this time. Willcontact clinic with any questions or concerns prior to next visit. Patient is agreeable to SMBG daily with CGM (KIT digitale) Patient aware to contact clinic if any hypoglycemia before next visit. MEDICATION CHANGES: no change Diabetic Medications: Metformin ER 500 mg - 2 tablets BID eGFR > 90 as of 10/05/24 A1c goal less than 7% HEALTH MAINTENANCE INTERVENTIONS: Labs: Ordered & Scheduled: HgA1c Immunizations: Up to Date Foot Exam: Due Eye Exam: Due Annual Wellness Visit: N/A FOLLOW UP: Return to clinic in 12 weeks 03/29/2025 I spent a total of 30-39 minutes (exact time 35 mins) on the date of service in preparation, delivery, and documentation of the care provided to Amanda Callejas excluding any time spent in the performance of separately billed services. Dana Martin [facility] Clinical Pharmacist - Snuff Packing Machine Operator Medication Therapy Management Clinic 01/05/2025, 10:19 AM documented in this encounter Plan of Treatment Upcoming Encounters Date Type Department Care Team (Late st Contact Info) Description 01/08/2025 1:00 PM EST Office Visit Gastroenterology [address] [place] [address] Emi Durbin CRNP [address] [place] [address] 03/29/2025 10:30 AM EDT Office Visit Pharmacy, [address] [place] [phone] [place] [address] 04/05/2025 9:30 AM EDT Nutrition Services Nutrition, [facility] [address] [place] [address] Berenice Beckman, SAPPHIREN [address] [place] [address] 04/16/2025 10:40 AM EDT Office Visit Family Medicine [address] [place] [phone] Sabine Spear MD [address] [place] [address] [place] [address] 10/27/2025 11:00 AM EST Imaging Radiology [address] [place] [address] 12/22/2025 10:20 AM EST Office Visit Dermatology [address] [place] [address] Liliana Singh PA-C [address] [place] [address] [place] [address] Pending Results Name Type Priority Associated Diagnoses Date /Time HEMOGLOBIN A1C Lab Routine Type 2 diabetes mellitus with hemoglobin A1c goal of less than 7.0% ([facility]) 01/05/2025 10:44 AM EST Scheduled Orders Name Type Priority Associated Diagnoses Orde r Schedule HEMOGLOBIN A1C Lab Routine Type 2 diabetes mellitus with hemoglobin A1c goal of less than 7.0% ([facility]) Expected: 01/05/2025, Expires: 01/05/2026 Scheduled Procedures Name Priority Associated Diagnoses Date/Ti [...] 02/14/2022, Additional history exists HbA1c 04/04/2025 10/05/2024, 070 08/2024, 03/06/2024, Additional history exists B-12 10/05/2025 10/05/2024, 110 08/2022, 09/20/2021, Additional history exists GFR 10/05/2025 [...] as of this encounter Visit Diagnoses Diagnosis Type 2 diabetes mellitus with hemoglobin A1c goal of less than 7.0% ([facility])- Primary Screening mammogram for breast cancer documented in this encounter Advance Directives Documents on File Type Date Recorded Patient Finishing Machine Operator Automatic Expl anation Power of Squash Centre Manager 04/07/2023 POWER OF A TTORNEY * Full Code (Latest Code Status on File) Date Activated Date Inactivated Comments 07/02/2018 11:33 AM 07/02/2018 4:17 PM This order re flects the patients wishes and were consensually agreed upon. Care Teams Warp Tester Relationship Specialty Start Date End Date Sabine Spear MD [address] [place] [address] [place] [address] PCP - General Family Medicine 12/15/24 documented as of this encounter
--- OUTSIDE RECORDS SUMMARY | 2025-02-01 21:20 | External Medical Summary | Summary of Care ---
Author Name Unknown Organization [facility] Address [address] [place] [address] Phone [phone] Care Team Providers Care Supervisor Dry Paste Name Role Phone Rhona Dover PA-C Primary Care Provider [phone] Reason for Visit * Reason Onset Date Comments Medication Pre-auth 11/19/2024 Freestyle Li be 2 sensor Encounter Details Date Type Department Care Team (Late st Contact Info) Description 11/19/2024 Telephone Family Medicine [address] [place] [phone] Rhona Dover PA-C [address] [place] [address] [place] [address] Medication Pre-auth (Freestyle Libe 2 sensor) Allergies Active Allergy Reactions Criticality Noted Date Comments Alc-Sertraline 10/18/2010 Stomach pain Aloe Hives 06/27/2018 Amitriptyline Hcl 10/18/2010 Elavil worsens migraines; sick Duloxetine Hcl 03/12/2017 [place] lethargic and wanted to give up Dapagliflozin [...] as of this encounter (statuses as of 11/19/2024) Medications TYLENOL EXTRA STRENGTH 500 MG PO [...] and 1 Tablet before bedtime. 2 Active Xiidra 5 % Ophthalmic Solution (Lifitegrast) Instill 1 drop into both eyes twice a day 180 Each 4 09/12/2024 12:32 PM EDT 3 Active Alphagan P 0.1 % Ophthalmic Solution [...] USE TO TEST GLUCOSE 6 Each 3 08/26/2024 7:21 AM EDT 4 06/01/20 25 Active Riboflavin 400 MG [...] PM EST 4 Active OneTouch Delica Plus [id number] tions:Type 2 diabetes mellitus with hemoglobin A1c [...] 100 Tablet 1 11/12/2024 11:08 AM EST Active documented as of this encounter (statuses as of 11/19/2024) Active Problems Problem Noted Date Diagnosed Date [...] as of this encounter (statuses as of 11/19/2024) Resolved Problems Problem Noted Date Diagnosed Date [...] as of this encounter (statuses as of 11/19/2024) Immunizations Name Administration Dates Next Due COVID-19 [...] yrs 03/07/2020,11/02/2019,09/02 Pneumococcal Conjugate Vacci ne, 20-valent ([id number]) 05/22/2022 Pneumococcal Polysaccharide PPV23 (Pneumovax) 10/23/2011 Seasonal [...] 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 Confirmed paid claim was obtained with $0 copay. Nothing furtherneeded at this time. Dana Martin RP, PharmD Clinical Pharmacist - Gate Technician Medication Therapy Disease Management Clinic 11/19/2024, 1:54 PM [phone] * Telephone Encounter - Josefina Prado CPhT - 11/19/2024 12:41 PM EST Pharmacy calling to inform doctor that the patient's insurance will not pay for this medication without a completed prior authorization. Did confirm this information with the pharmacy. Pt's current insurance information is as follows: Patient name: Amanda Callejas ID number: [id number] BIN number: [id number] PCN number: [facility] [place] Group number: [id number] Subscriber name: Amanda Callejas Primary or Secondary Insurance:Primary Medication: Freestyle Jazmin 2 sensor Reason for Request: [place] required Pharmacy and phone number: [facility] [phone] Rx plan and phone number: [facility] [phone] Is this a new medication for the patient? No. How did the patient obtain the medication on the lastfill? It was covered last time on this same insurance. What alternative medications does the pharmacy have in stock?: Thank you, Josefina Prado CPhT Tool Room Lathe Operator [facility] 11/19/2024, 12:45 PM documented in this encounter Plan of Treatment Upcoming Encounters Date Type Department Care Team (Late st Contact Info) Description 01/05/2025 10:30 AM EST Office Visit Pharmacy, [address] [place] [address] [place] [address] 01/08/2025 1:00 PM EST Office Visit Gastroenterology [address] [place] [address] Emi Durbin CRNP [address] [place] [address] 04/05/2025 9:30 AM EDT Nutrition Services Nutrition, [facility] [address] [place] [address] Berenice Beckman RDN [address] [place] [address] 04/16/2025 10:40 AM EDT Office Visit Family Medicine [address] [place] [phone] Sabine Spear MD [address] [place] [address] [place] [address] 10/04/2025 10:20 AM EST Office Visit Dermatology [address] [place] [address] Liliana Singh PA-C [address] [place] [address] [place] [address] 10/27/2025 11:00 AM EST Imaging Radiology [address] [place] [address] Scheduled Procedures Name Priority Associated Diagnoses Date/Ti [...] 03/06/2024, Additional history exists B-12 10/05/2025 10/05/2024, 11/0 [...] Zoster Vaccines Completed 07/14/2020, 01/14/2020 Pneumococcal Vaccine: Pediatrics (0 to 5 Years) and At-Risk Patients (6 to 64 Years) Completed 05/22/2022, 10/23/2011 RETIRED - COLONOSCOPY-EVERY 5 [...] Documents on File Type Date Recorded Patient Network Program Manager Expl anation Power of Type Bar And Segment Assembler 04/07/2023 POWER OF A TTORNEY * Full Code (Latest Code Status on File) Date Activated Date Inactivated Comments 07/02/2018 11:33 AM 07/02/2018 4:17 PM This order re flects the patients wishes and were consensually agreed upon. Care Teams Supervisor Dry Paste Relationship Specialty Start Date End Date Rhona Dover PA-C [address] [place] [address] [place] [phone] PCP - General Physician Senior Javascript Developer 09/21/24 documented as of this encounter
--- OUTSIDE RECORDS SUMMARY | 2025-02-01 21:20 | External Medical Summary ---
Author Name Unknown Address Unknown Organization K01:[facility] - [address] [place] [address] Laboratory Report Ordering Provider Test Date Status PEREZ,KITESTHELA 01/05/2025 10:44:08 Final Observation Date Value Abnormality Reference (Units ) Status HbA1C 01/05/2025 10:44:08 8.5 Above high normal 4. 0-5.6 (%) Final The use of HbA1c to monitor glycemic status is based on normal hemoglobin and HbA composition. This test should not be used in patients with abnormal hemoglobin that affects the half life of the red blood cell or the in vivo glycation rates. Glucose, estimated average 01/05/2025 10:44:08 197 Above high normal <126 (mg/dL) Felix lee Performing Location [facility] - [address] [place] [address]
--- OUTSIDE RECORDS SUMMARY | 2025-02-01 21:20 | External Medical Summary | Summary of Care ---
Author Name Unknown Organization [facility] Address [address] [facility] [place] [address] Phone [phone] Care Team Providers Care Township Supervisor Name Role Phone Sabine Spear MD Primary Care Provide r Reason for Visit * Reason Comments Outpatient Testing Encounter Details Date Type Department Care Team (Late st Contact Info) Description 01/05/2025 10:50 AM EST Laboratory Laboratory [address] [place] [phone] [place] [address] Type 2 diabetes mellitus with hemoglobin A1c goal of less than 7.0% ([facility]) Allergies Active Allergy Reactions Criticality Noted Date Comments Alc-Sertraline 10/18/2010 Stomach pain Aloe Hives 06/27/2018 Amitriptyline Hcl 10/18/2010 Elavil worsens migraines; sick Duloxetine Hcl 03/12/2017 [place] lethargic and wanted to give up Dapagliflozin [...] hemoglobin A1c goal of less than 7.0% ([facility]) CHANGE EVERY 14 DAYS. 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 Not on file Not on f ile documented as of this encounter Plan of Treatment Upcoming Encounters Date Type Department Care Team (Late st Contact Info) Description 01/08/2025 1:00 PM EST Office Visit Gastroenterology [address] [place] [address] Emi Durbin CRNP [address] [place] [address] 03/29/2025 10:30 AM EDT Office Visit Pharmacy, [address] [place] [address] [place] [address] 04/05/2025 9:30 AM EDT Nutrition Services [facility] [address] [place] [address] Berenice Beckman RDN [address] [place] [address] 04/16/2025 10:40 AM EDT Office Visit Family Medicine [address] [place] [phone] Sabine Spear MD [address] [place] [address] [place] [address] 10/27/2025 11:00 AM EST Imaging Radiology [address] [place] [address] 12/22/2025 10:20 AM EST Office Visit Dermatology [address] [place] [address] Liliana Singh PA-C [address] [place] [address] [place] [address] Pending Results Name Type Priority Associated Diagnoses Date /Time HEMOGLOBIN A1C Lab Routine Type 2 diabetes mellitus with hemoglobin A1c goal of less than 7.0% ([facility]) 01/05/2025 10:44 AM EST Scheduled Procedures Name Priority Associated Diagnoses Date/Ti [...] hemoglobin A1c goal of less than 7.0% ([facility]) Screening mammogram for breast cancer documented in this encounter Advance Directives Documents on File Type Date Recorded Patient 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 Care Teams Township Supervisor Relationship Specialty Start Date End Date Sabine Spear MD [address] [place] [address] [place] [address] PCP - General Family Medicine 12/15/24 documented as of this encounter
--- OUTSIDE RECORDS SUMMARY | 2025-02-01 21:20 | External Medical Summary | Summary of Care ---
Author Name Unknown Organization [facility] Address [address] [facility] [place] [address] Phone [phone] Care Team Providers Care Senior Project Engineer Name Role Phone Sabine Spear MD Primary Care Provide r Reason for Visit * Reason Comments Follow Up Pt here to f/u for g astroparesis and IBS. Pt BM's altering between constipation/diarrhea. No meds for bowels. GERD stable on BID omeprazole. Encounter Details Date Type Department Care Team (Late st Contact Info) Description 01/08/2025 1:00 PM EST Office Visit Gastroenterology [address] [place] [address] Emi Durbin CRNP [address] [place] [address] Gastroparesis*; Gastroesophageal reflux disease without esophagitis Allergies Active Allergy Reactions Criticality Noted Date Comments Alc-Sertraline 10/18/2010 Stomach pain Aloe Hives 06/27/2018 Amitriptyline Hcl 10/18/2010 Elavil worsens migraines; sick Duloxetine Hcl 03/12/2017 [place] lethargic and wanted to give up Dapagliflozin [...] as of this encounter (statuses as of 01/08/2025) Medications TYLENOL EXTRA STRENGTH 500 MG PO [...] PM EST 4 Active OneTouch Delica Plus [id number] tions:Type 2 diabetes mellitus with hemoglobin A1c [...] as of this encounter (statuses as of 01/08/2025) Active Problems Problem Noted Date Diagnosed Date [...] as of this encounter (statuses as of 01/08/2025) Resolved Problems Problem Noted Date Diagnosed Date [...] as of this encounter (statuses as of 01/08/2025) Immunizations Name Administration Dates Next Due COVID-19 [...] yrs 03/07/2020,11/02/2019,09/02 Pneumococcal Conjugate Vacci ne, 20-valent ([id number]) 05/22/2022 Pneumococcal Polysaccharide PPV23 (Pneumovax) 10/23/2011 Seasonal [...] 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 DATE OF SERVICE: 01/08/25 REFERRING PHYSICIAN: Truong Mg II, DO CC: F/U 01/08/25: Pt is doing quite well. Denies nausea, significant breakthrough heartburn or acid reflux.No dysphagia. Bowels move quite regularly wo rectal bleeding. 09/03/24: Pt previously seen by YANICK Vivar (see HPI below). She has mild nausea, novomiting. Bowel pattern irregular. No rectal bleeding. No abd pain. Office Visit 03/25/2024 : 54 year old female with history of T2DM, dyslipidemia and others below referred for eval of abd pain, gastroparesis, disorder of rectum and lymph nodes at the request of Dr. Mg. She notes symptoms started in 2019. She suggests she was diagnosed with gastroparesis years and years ago. She notes she never took medication for this and would just titrate her diet to help her symptoms. Notes that she has upper and pain and right sided abd pain. Occurs at random. Eatingdoes not cause the pain. Pain is sharp, stabbing and fullness. There is nausea. Intermittent emesis. This can be food or bile. No black or bloody emesis. She has heartburn, reflux, regurgitation. She takes Omeprazole for this. She still gets heartburn despite this. Bowels alternate. Can have constipation with no BM in 1-2 days, can have formed stool or loose stools. No black or bloody stools. Hasrectal pain with BM from time to time. No fever, chills, CP, SOB. She notes she was started on Ozempic 3 weeks ago. She notes she was on this in the past for a few years ago and tolerated it well. CTAP 2023: CTAP 2023: Lower chest: No acute abnormality.Liver: Unremarkable. No focal lesions are seen.Gallbladder and biliary tree: Patient is status post cholecystectomy. No intra- or extrahepatic biliary ductal dilation.Pancreas: Unremarkable, no focal lesions.Spleen: Unremarkable.Adrenals: Unremarkable.Kid neys and ureters: Right renal cyst is seen.Bladder: Unremarkable.Reproductive organs: Unremarkable.Bowel: The appendix is normal.Lymph nodesRetroperitoneal: Subcentimeter lymph nodes are noted.Pelvic: Unremarkable.Mesenteric: Subcentimeter lymph nodes are noted.Peritoneum: Normal.Vessels: Atherosclerotic calcifications are seen.Abdominal wall: Unremarkable.Bones: Minimal degenerative changes are seen in the spine.IMPRESSION:No acute abnormalities and in particular no evidence of urothelial lesion. EGD 2017: Z-line irregular. Biopsied. - Small hiatal hernia. - Normal examined duodenum. Colonoscopy 2019: The examined portion of the ileum was normal. - Internal hemorrhoids. - The examination was otherwise normal. - No specimens collected. EGD/Colonoscopy 2023: - Normal esophagus. - Z-line, 40 cm from the incisors. - Gastroesophageal flap valve classified as Hill Grade II (fold present, opens with respiration). - Normal stomach. Biopsied. - Normal examined duodenum. Biopsied - Diverticulosis in the sigmoid colon. - One 6 mm polyp in the transverse colon, removed with a cold snare. Resected and retrieved. - The examination was otherwise normal A. Duodenum, random, biopsy: Duodenal mucosa without significant abnormality. Negative for Giardia, celiac disease or significant inflammation. B. Stomach, random, biopsy: Antral mucosa with reactive gastropathy. Oxyntic mucosa with mild chronic inflammation. Negative for Helicobacter pylori on H&E and immunostain. C. Colon, polyps, polypectomy: Tubular adenoma. Hyperplastic polyp. GES 08/2024: Delayed solid gastric emptying study, consistent with gastroparesis. This exam cannot differentiate drug-induced gastroparesis from diabetic gastroparesis. Family history of GI malignancy: none Past Medical History: Diagnosis Date Acute angle-closure glaucoma of left eye 2012 Arthritis of hip SI joint--mild right hip Bulging discs Calculus of gallbladder without mention of cholecystitis or obstruction 03/23/2010 Contracted GB filled with stones Chest pain undiagnosed chest pain, cath-normal Congenital anomaly of eye wandering eye DDD (degenerative disc disease), lumbosacral Depressive disorder, not elsewhere classified Dyslipidemia, goal LDL below 130 diet controlled FATTY LIVER 03/23/2010 hepatomegaly with fatty infiltration Generalized anxiety disorder IBS (irritable bowel syndrome) Migraine Panic disorder Primary hypertension 09/04/2024 Vertigo Family History Problem Relation Name Age of Onset Endocrine Disorder Mother cholesterol Cancer Grandfather (Maternal) throat Cancer Uncle (Unspecified) Diabetes Mother Diabetes Father Eye Problems Grandfather (Paternal) glaucoma Heart Disorder Grandmother (Paternal) quadruple bypass Other (Other) None heart disease in family side of family Diabetes Sister Past Surgical History: Procedure Laterality Date COLONOSCOPY, DIAGNOSTIC (RECTUM) 09/24/2014 hyperplastic polyps, repeat 5 yrs/done @ [facility] [place] COLONOSCOPY, DIAGNOSTIC (RECTUM) 07/27/2020 normal, repeat 5 yrs / COLONOSCOPY FLEXIBLE PROXIMAL DIAGNOSTIC performed by Daniel Chavez DO atENDOSCOPY [facility] COLONOSCOPY, DIAGNOSTIC (RECTUM) 08/25/2024 diverticulosis/biopsies normal/recall 5 years/COLONOSCOPY FLEXIBLE PROXIMAL DIAGNOSTIC performed byJael Plata MD at ENDOSCOPY [facility] EGD, FLEXIBLE, DIAGNOSTIC 04/14/2018 normal bx, hiatal hernia/ESOPHAGOGASTRODUODENOSCOPY (EGD), FLEXIBLE, TRANSORAL, DIAGNOSTIC performed by Meet Rankin MD at ENDOSCOPY [facility] EGD, FLEXIBLE, DIAGNOSTIC 08/25/2024 biopsies normal/ESOPHAGOGASTRODUODENOSCOPY (EGD), FLEXIBLE, TRANSORAL, DIAGNOSTIC performed by Jael Plata MD at ENDOSCOPY [facility] EGD, FLEXIBLE, W/BIOPSY 02/11/2012 biopsies taken, pathology shows inflammation at end of esophagus consistant with acid reflux neg for Barretts neg for H Pylori EGD, W/ENDOSCOPIC US 12/14/2013 ESOPHAGOGASTRODUODENOSCOPY (EGD), FLEXIBLE, TRANSORAL, ENDOSCOPIC ULTRASOUND performed by Daniel Chavez DO at OR [facility] EYE MUSCLE SURGERY FOLLOWUP multiple bilateral as a child, 1993 right eye LAPAROSCOPY; CHOLECYSTECTOMY 07/21/2010 Laparoscopic cholecystectomy 07/21/[address] Vidal at [facility] [place] OTHER N/A 1997 bladder tack REMOVAL OF OVARY/OVIDUCT(S) 07/1996 bilateral TENDON SHEATH INCISION, FINGER Right 07/02/2018 TRIGGER FINGER RELEASE performed by Mony Ames DO at OR [facility] TOTAL HYSTERECTOMY 01/29/2001 Social History Tobacco Use Smoking status: Former Current packs/day: 0.00 Types: Cigarettes Quit date: 12/02/1996 Years since quittin.1 Smokeless tobacco: Never Vaping Use Vaping status: Never Used Substance Use Topics Alcohol use: No Comment: rare Drug use: No Review of patient's allergies indicates: Allergen Reactions Latex Rash Relpax [Eletriptan Hydrobromide] Flushing and Nausea/vomiting Alc-Sertraline Stomach pain Aloe Hives Amitriptyline Hcl Elavil worsens migraines; sick Cymbalta [Duloxetine Hcl] [place] lethargic and wanted to give up Farxiga [Dapagliflozin] Rash Per patient: rash and vaginal irritation 06/2021 Flexeril [Cyclobenzaprine] Other (Please comment) Dizziness and syncope Hydroxypropyl Methylcellulose Diarrhea Ibuprofen Nausea/vomiting Imitrex [Sumatriptan Base] Increased headache, nausea Lamotrigine Hives Lidoderm Rash Neosporin [Neomycin-Bacitracin Zn-Polymyx] Hives Nitrofurantoin Abdominal pain and Diarrhea Nsaids naproxen- passes out asa/advil sick indocin nausea Ozempic (0.25 Or 0.5 Mg-Dose) [Semaglutide(0.25 Or 0.5mg-Dos)] Neuro complications (Please comment) Visual disturbances Topamax Palpitation, chest pressure Tramadol Hcl Unknown Trulicity [Dulaglutide] Other (Please comment) headaches Wellbutrin [Bupropion Hcl] Neuro complications (Please comment) Headache Current Outpatient Medications Medication Sig Dispense Refill TYLENOL EXTRA STRENGTH 500 MG PO TABS 2 tabs taken as needed BRIMONIDINE TARTRATE 0.2 % OP SOLN Instill into eye 2 times a day. TIMOLOL MALEATE 0.5 % OP SOLN 2 times a day. CANE MISC to use cane as needed to assist with ambulation (Patient not taking: Reported on 08/25/2024) 1 Each 0 Multiple Vitamins-Minerals (MULTIVITAMIN ADULT) TABS Take by mouth. Ginkgo Biloba 40 MG Oral Tablet Take 1 Tablet by mouth in the morning and 1 Tablet before bedtime. Alphagan P 0.1 % Ophthalmic Solution Instill 1 drop into both eyes twice a day 20 mL 6 Omeprazole 20 MG Oral Capsule Delayed Release (PriLOSEC) Take 1 Capsule by mouth in the morning and1 Capsule before bedtime. 180 Capsule 3 FreeStyle Jazmin 2 Sensor CHANGE EVERY 14 DAYS. USE TO TEST GLUCOSE 6 Each 3 Riboflavin 400 MG Oral Tablet TAKE ONE TABLET BY MOUTH EVERY MORNING 90 Tablet 1 Tamsulosin HCl 0.4 MG Oral Capsule (Flomax) take 1 capsule by mouth daily (Patient taking differently: Take by mouth at bedtime.) 90 Capsule 1 Magnesium Oxide 400 MG Oral Tablet TAKE ONE TABLET BY MOUTH AT BEDTIME 90 Tablet 1 metFORMIN HCl ER 500 MG Oral Tablet Extended Release 24 Hour (Glucophage XR) Take 2 Tablets by mouth 2 times a day with morning and evening meals. 360 Tablet 3 Lisinopril 10 MG Oral Tablet (Prinivil) Take 1 Tablet by mouth in the morning. 90 Tablet 0 OneTouch Delica Plus [id number] USE TO TEST BLOOD SUGAR ONCE A DAY 100 Each 3 Dorzolamide HCl 2 % Ophthalmic Solution (Trusopt Ocumeter Plus) Instill 1 drop into both eyes twicea day 40 mL 6 OneTouch Verio In Vitro Strip (Glucose Blood) USE TO TEST BLOOD SUGAR ONCE A DAY 100 Strip 3 Pravastatin Sodium 40 MG Oral Tablet (Pravachol) Take 1 Tablet by mouth every evening. 100 Tablet 1 Xiidra 5 % Ophthalmic Solution (Lifitegrast) Instill 1 drop into both eyes twice a day 180 Each 4 Timolol Maleate PF 0.5 % Ophthalmic Solution (Timoptic Ocudose) Instill 1 drop into both eyes once a day as needed May use up to 2 times a day. 180 Each 6 No current facility-administered medications for this visit. REVIEW OF SYSTEMS: All other findings negative except as noted in HPI. EXAM: Filed Vitals: 01/08/25 1246 BP: 130/78 Temp: 36.6 C (97.8 F) Weight: 79.8 kg (176 lb) GENERAL: Well developed and well nourished in no acute distress. SKIN: No rashes, ulcers, jaundice or spider angiomata. HEENT: Normocephalic, sclera clear, NECK: Supple, trachea midline, no JVD. LUNGS: Clear to auscultation bilaterally, no respiratory distress or accessory muscles used. HEART: Regular rate & rhythm, no murmurs and no gallops. ABDOMEN: Normal bowel sounds, soft and nontender, no masses or hepatosplenomegaly. EXTREMITIES: No palmar erythema, no ankle edema, NEURO: No lateralizing findings. Sensory/Motor grossly normal. ASSESSMENT AND PLAN: 54 year old female with history gastroparesis, GERD, clinically doing well. She would like to defer any pro-motility agents at this time. - Gastroparesis diet reviewed - Continue Omeprazole 20mg bid. - ED for emergencies - Please call with any questions or concerns RETURN TO CLINIC: 6 months I spent a total of 30 minutes on the date of service in review of patient's record, and previously obtained information in person and appropriate medical visit, discussion and education of plan, withpatient and/or caregiver, placing orders for tests/referral/procedures as medically necessary and documentation of pertinent clinical information in patient's medical records for their visit today. YANICK Starr documented in this encounter Nursing Notes * Daniela Mishra CMA - 01/08/2025 12:46 PM EST Chief Complaint Patient presents with Follow Up Pt here to f/u for gastroparesis and IBS. Pt BM's altering between constipation/diarrhea. No meds for bowels. GERD stable on BID omeprazole. documented in this encounter Plan of Treatment Upcoming Encounters Date Type Department Care Team (Late st Contact Info) Description 03/29/2025 10:30 AM EDT Office Visit Pharmacy, [address] [place] [address] [place] [address] 04/05/2025 9:30 AM EDT Nutrition Services Nutrition, [facility] [address] [place] [address] Berenice Beckman RDN [address] [place] [address] 04/16/2025 10:40 AM EDT Office Visit Family Medicine [address] [phone] Sabine Spear MD [address] [place] [address] [place] [address] 07/16/2025 10:00 AM EDT Office Visit Gastroenterology [address] [place] [address] Emi Durbin CRNP [address] [place] [address] 10/27/2025 11:00 AM EST Imaging Radiology [address] [place] [address] 12/22/2025 10:20 AM EST Office Visit Dermatology [address] [place] [address] Liliana Singh PA-C [address] [place] [address] [place] [address] Scheduled Procedures Name Priority Associated Diagnoses Date/Ti [...] as of this encounter Visit Diagnoses Diagnosis Gastroparesis- Primary Gastroesophageal reflux disease without esophagitis Esophageal reflux Screening mammogram for breast cancer documented in this encounter Advance Directives Documents on File Type Date Recorded 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 Care Teams Senior Project Engineer Relationship Specialty Start Date End Date Sabine Spear MD [address] [place] [address] [place] [address] PCP - General Family Medicine 12/15/24 documented as of this encounter
--- OUTSIDE RECORDS SUMMARY | 2025-02-01 21:20 | External Medical Summary | Summary of Care ---
Author Name Unknown Organization [facility] Address [address] [facility] [place] [address] Phone [phone] Care Team Providers Care Flexible Babysitter Name Role Phone Sabine Spear MD Primary Care Provide r Reason for Referral * Medication Prior Authorization - Closed Specialty Diagnoses / Procedures Referred By Contac t Referred To Contact Diagnoses Migraine without status migrainosus, not intractable, unspecified migraine type Sabine Spear MD [address] [place] [address] [place] [address] Phone: tel: fax: Referral ID Status Reason Start Date Expiration Date Visits Re quested Visits Authorized [id number] Closed [phone] Reason for Visit * Reason Comments Medication Refill Encounter Details Date Type Department Care Team (Late st Contact Info) Description 01/11/2025 Refill Family Medicine [address] [place] [phone] Sabine Spear MD [address] [place] [address] [place] [address] Migraine without status migrainosus, not intractable, unspecified migraine type* Allergies Active Allergy Reactions Criticality Noted Date Comments Alc-Sertraline 10/18/2010 Stomach pain Aloe Hives 06/27/2018 Amitriptyline Hcl 10/18/2010 Elavil worsens migraines; sick Duloxetine Hcl 03/12/2017 [place] lethargic and wanted to give up Dapagliflozin [...] PM EST 4 Active OneTouch Delica Plus [id number] tions:Type 2 diabetes mellitus with hemoglobin A1c [...] CG/0.3 mL, 12 YRS AND ABOVE, IM (Freeze Tag-[facility]) 10/14/2023 COVID-19, mRNA, LNP-s, PF, B ooster, 100mcg/0.5mg (Moderna) 11/28/2021 Covid-19, Mrna, Lnp-s, Pf, B ivalent, 50 Mcg, IM, 12 yrs and above (Moderna) 12/14/2022 Hepatitis B, 20+ yrs 03/07/2020,11/02/2019,09/02 Pneumococcal Conjugate Vacci ne, 20-valent ([id number]) 05/22/2022 Pneumococcal Polysaccharide PPV23 (Pneumovax) 10/23/2011 Seasonal [...] 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 Thank you, Naz Perez Latex Thread Machine Operator Centralized Clinical Pharmacy Services 01/11/2025,11:17 AM * [...] 10:30 AM EDT Office Visit Pharmacy, [address] [place] [address] [place] [address] 04/05/2025 9:30 AM EDT Nutrition Services Nutrition, [facility] [address] [place] [address] Berenice Beckman, CORDELL [address] [place] [address] 04/16/2025 10:40 AM EDT Office Visit Family Medicine [address] [place] [phone] Sabine Spear MD [address] [place] [address] [place] [address] 07/16/2025 10:00 AM EDT Office Visit Gastroenterology [address] [place] [address] Emi Durbin CRNP [address] [facility] [place] [address] 10/27/2025 11:00 AM EST Imaging Radiology [address] [place] [address] 12/22/2025 10:20 AM EST Office Visit Dermatology [address] [place] [address] Liliana Singh PA-C [address] [place] [address] [place] [address] Scheduled Procedures Name Priority Associated Diagnoses Date/Ti [...] Documents on File Type Date Recorded Patient Development Geologist Expl anation Power of Supervisor [place] 04/07/2023 POWER OF A TTORNEY * Full Code (Latest Code Status on File) Date Activated Date Inactivated Comments 07/02/2018 11:33 AM 07/02/2018 4:17 PM This order re flects the patients wishes and were consensually agreed upon. Care Teams Flexible Babysitter Relationship Specialty Start Date End Date Sabine Spear MD [address] [place] [address] [place] [phone] PCP - General Family Medicine 12/15/24 documented as of this encounter
[2025-02-01] MEDS ORDERED: ONDANSETRON INJ 2 MG/ML 2 ML VIAL IV PRN (23:34)
[2025-02-01] MEDS ORDERED: ACETAMINOPHEN 500 MG TAB PO PRN (23:34)
[2025-02-01] MEDS ORDERED: DORZOLAMIDE HCL 2% OPH SOLN 10 ML BTL OP ONE (23:34)
[2025-02-01] MEDS ORDERED: ALUMINUM/MAGNESIUM SUSP 30 ML UDC PO PRN (23:34)
[2025-02-01] MEDS ORDERED: POLYETHYLENE (MIRALAX) 17 GM PACK PO PRN (23:34)
[2025-02-01] MEDS ORDERED: MELATONIN 3 MG TAB PO PRN (23:34)
[2025-02-02] MEDS: DORZOLAMIDE HCL 2% OPH SOLN 10 ML BTL OPB SCH (01:09)
[2025-02-02] MEDS: BRIMONIDINE TARTRATE-P 0.15% 5 ML BTL OP SCH (01:10)
[2025-02-02] MEDS: TIMOLOL MALEATE 0.5% OP SOLN 5 ML BTL OP SCH (01:10)
[2025-02-02] MEDS: PANTOprazole 40 MG TAB PO SCH (01:12)
[2025-02-02] MEDS: ENOXAPARIN INJ 40 MG/0.4 ML SYR SQ SCH (01:12)
[2025-02-02] MEDS: PRAVASTATIN SOD 40 MG TAB PO SCH (01:12)
[2025-02-02] MEDS: MAGNESIUM OXIDE 400 MG TAB PO SCH (01:12)
[2025-02-02] MEDS: ARTIFICIAL TEARS OP PRN (02:09)
[2025-02-02 03:32] VITALS: TEMP 98.2
--- NOTE | 2025-02-02 06:57 | Hospitalist Progress Note ---
Date of Service February 02, 2025 Assessment & Plan (1) Chest pain: (2) Type 2 diabetes mellitus: Plan 55-year-old female PMHx T2DM complicated by gastroparesis, GERD, and HLD presenting for chest pain x 4 days. ED evaluation reveals no leukocytosis, normal H&H, grossly CMP BUN/creatinine ratio 20.6, and troponin x 2 < 2.3; BioFire negative; CXR WNL; EKG normal sinus rhythm at 82 bpm. 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 - History of panic attacks and states this feels similar aside from the L arm numbness/cool sensation; has not had a panic attack in "years". - admission labs fairly unremarkable, EKG NSR, rate 82 bpm; Trop x 2 < 2.3, LDL 61 - on pravastatin at baseline - Tylenol prn pain/fever; Maalox 30mL po q4hr indigestion - Psych liaison consult placed to discuss stress/history of panic- appreciate input + recs - echo pending; if negative will discuss with her maybe doing a stress test to more definitely give reassurance - will trial dose of toradol today to see if pain improves with that #T2DM H/o DMT2; home regimen of metformin - A1c 8.6%; continue metformin - No SSI added at admission; add if prolonged stay #GERD - Omeprazole VTE Prophylaxis: Lovenox Admission and Anticipated Discharge Date Admission Date: February 01, 2025 Subjective Pt seen at bedside in the ED this morning. Pt states that her chest pain started 4-5 days ago immediately upon waking up. She does note that she has a hx of chest pain with prior panic attacks but they never involved a cool/numb sensation of her L arm and she has not had one in years. She states her seems sure that this episode was a panic attack but she came in for further eval regardless as she has maternal and paternal hx of IN/CVAs in family members in their 60s. She states that once the pain started days ago, it was persistent. Nothing made the pain better or worse. She states since coming in, the pain is better but not gone. She states that taking the nitroglycerine seemed to knock the pain level down but did not completely resolve it. The pain is sternal with some radiation to the L chest. Review of Systems Review of Systems: HPI. Physical Exam Physical Exam: General:Alert and oriented, no acute distress, HEENT: Normocephalic, moist oral mucosa, Cardio: Regular rate and rhythm, no murmur, Resp:Lungs clear to auscultation b/l, no wheezes or rhonchi, Skin: Warm, pink, dry, Results & Data Results & Data Vital Signs (Past 12 Hours) Vital Signs Temp Pulse Pulse Resp BP BP Pulse Ox 02/02/25 04:27 67 18 118/81 98 02/02/25 02:42 36.8 C 88 17 127/76 97 02/02/25 00:27 71 17 118/72 98 02/01/25 23:59 73 02/01/25 23:00 80 17 164/93 H 94 02/01/25 22:24 77 22 142/91 H 94 02/01/25 21:21 79 02/01/25 21:02 80 18 151/96 H 94 02/01/25 20:45 77 12 153/109 H 95 02/01/25 19:03 79 19 136/95 95 O2 Del Method 02/02/25 04:27 Room Air 02/02/25 02:42 Room Air 02/02/25 00:27 Room Air 02/01/25 23:59 02/01/25 23:00 Room Air 02/01/25 22:24 02/01/25 21:21 02/01/25 21:02 02/01/25 20:45 02/01/25 19:03 Resident Activity Tracking Resident Involvement: Resident Care Provided Care Provided: Adult Hospital Medicine
[2025-02-02 07:54] LABS: Hematocrit (blood only) 39.3 % (37.0-47.0); Hemoglobin 13.2 g/dl (12.0-16.0); Mean Corpuscular Hemoglobin 26.6 pg (25.0-34.0); Mean Corpuscular Hgb Conc 33.6 g/dL (32.0-36.0); Mean Corpuscular Volume 79.1 fL (80.0-100.0); Mean Platelet Volume 11.1 fL (9.4-12.4); Platelet Count 205 K/uL (130-400); RDW Coefficient of Variation 13.2 % (11.5-14.5); RDW Standard Deviation 37.3 fL (36.4-46.3); Red Blood Count 4.97 M/uL (4.20-5.40); White Blood Count 5.13 K/ul (4.8-10.8)
[2025-02-02 08:21] LABS: Calcium 9.5 mg/dl (8.6-10.3); Chol HDL Ratio 3.5 (0-5); Creatinine Clr Calc Pharmacy 119.6 ml/min; Potassium 3.5 mmol/L (3.5-5.1)
[2025-02-02] MEDS: lisinopril 10 MG TAB PO SCH (08:31)
[2025-02-02] MEDS: TAMSULOSIN HCL 0.4 MG CAP PO SCH (08:31)
[2025-02-02] MEDS: metFORMIN HCL ER 500 MG TABCR PO SCH (08:31)
[2025-02-02] MEDS ORDERED: NON-FORMULARY MEDICATION (Riboflavin (Vitamin B2) 400 mg Tablet) PO SCH (09:00)
[2025-02-02 09:33] LABS: Estimated Average Glucose 200 mg/dl; Hemoglobin A1C 8.6 % (4.5-5.6)
--- NOTE | 2025-02-02 16:47 | XCELERA ---
[id number] \\[email or web address]\[id number]
[2025-02-02 16:58] VITALS: PULSE 80; O2SAT 96
--- NOTE | 2025-02-02 17:17 | Discharge Summary ---
Date of Service February 02, 2025 Admission HPI Per Admitting Provider 55-year-old female PMHx T2DM complicated by gastroparesis, GERD, and HLD presenting for chest pain x 4 days. Patient arrived via EMS. Chest pain, headaches, neck pain, and L arm numbness/tingling going for 4 days. States that she has a history of migraines which has been ongoing since . Across forehead, without vision changes from baseline. Patient states that the chest pain is mainly localized to her left chest without radiation, it does cause her to have some SOB. States that the pain comes and goes, is not triggered by anything and can last for duration of 10 minutes to multiple hours. Sometimes when she is standing she feels as though she gets palpitations. She does have some dizziness also with history of vertigo, seems to just have the dizziness feels slightly different. Patient reports that she has a history of panic attacks and she has been under a lot of increased stress over the past week. Prior panic attacks years ago, but started as chest pain and headaches so she thinks that this may be similar. Overall denying abdominal pain, N/V/D/C, weakness, syncope, LUTS, or fever/chills. States she came to the hospital today because she had a ride to get a vomiting. ED evaluation reveals no leukocytosis, normal H&H, grossly CMP BUN/creatinine ratio 20.6, and troponin x 2 < 2.3; BioFire negative; CXR WNL; EKG normal sinus rhythm at 82 bpm. Of note, patient is a [employer]. Please see Dr. Arellano's attestation for adjustments/additions to treatment plan. Admission Exam Per Admitting Provider General: No acute distress Skin: Warm and dry Head: Normocephalic, atraumatic Eyes: PERRL, conjunctivae clear, sclera non-icteric ENT: External ear and ear canal without swelling; nose atraumatic; good dentition, tongue normal appearance, pharynx normal Neck: Supple, no LAD Cardio: RRR, no M/G/R, S1 and S2 normal Resp: No respiratory distress, Lungs CTA in all lobes bilaterally, no wheezes, rales, or rhonchi Abdomen: Soft, symmetric, nontender; no distention; No masses or hepatosplenomegaly; Bowel sounds normoactive MSK: No deformities; pulses palpable and equal; no edema. Neuro: Awake, alert; CN grossly intact Psych: Appropriate mood and affect; good judgement and insight. present in room at time of visit. Principal Diagnosis Chest pain Discharge Exam General:Alert and oriented, no acute distress, HEENT: Normocephalic, moist oral mucosa, Cardio: Regular rate and rhythm, no murmur, Resp:Lungs clear to auscultation b/l, no wheezes or rhonchi, Skin: Warm, pink, dry, Discharge Data Allergies Allergy/AdvReac Type Severity Reaction Status Date / Time lidocaine [From Lidoderm] Allergy Severe Rash Verified 02/01/25 20:58 amitriptyline Allergy Unknown Unknown Verified 02/02/25 00:05 bupropion Allergy Unknown headache Verified 11/11/24 10:15 eletriptan Allergy Unknown RASH Unverified 11/11/24 10:15 lamotrigine Allergy Unknown UNKNOWN Unverified 11/11/24 10:15 latex Allergy Unknown UNKNOWN Verified 11/11/24 10:15 NSAIDS (Non-Steroidal Allergy Unknown UNKNOWN Verified 11/11/24 10:15 Anti-Inflamma sumatriptan Allergy Unknown MIGRAINES Unverified 11/11/24 10:15 WORSE tramadol Allergy Unknown headache Verified 11/11/24 10:15 nitrofurantoin AdvReac Severe Vomiting Verified 02/01/25 20:58 vibegron [From Gemtesa] AdvReac Severe Vomiting Verified 02/01/25 20:58 semaglutide [From Ozempic] AdvReac Intermediate Nausea Verified 11/11/24 10:15 Consultations 02/01/25 20:05 ED Decision to Admit Stat 02/02/25 07:16 Consult Behavioral Health Liaison Routine Hospital Course (1) Chest pain: (2) Type 2 diabetes mellitus: Plan 55-year-old female PMHx T2DM complicated by gastroparesis, GERD, and HLD presenting for chest pain x 4 days. ED evaluation reveals no leukocytosis, normal H&H, grossly CMP BUN/creatinine ratio 20.6, and troponin x 2 < 2.3; BioFire negative; CXR WNL; EKG normal sinus rhythm at 82 bpm. 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 - History of panic attacks and states this feels similar aside from the L arm numbness/cool sensation; has not had a panic attack in "years". - admission labs fairly unremarkable, EKG NSR, rate 82 bpm; Trop x 2 < 2.3, LDL 61 - on pravastatin at baseline, she should continue this - echo done 02/02; EF 55-60% and no wall motion abnormalities seen, and with workup above and story, unlikely that this event was cardiac related - given hx panic attacks with chest pain episodes related to anxiety, will discharge with script for prn hydroxyzine #T2DM H/o DMT2; home regimen of metformin - A1c 8.6% on 02/02 Total Time Total Time Spent Total Time Spent (In Minutes): As per attending attestation. Discharge Plan Discharge Items Patient Disposition: Home - Self-Care Reason For Visit: CHEST PAIN Discharge Diagnosis: Chest pain Condition on Discharge: Good Activity: Resume your previous activity Non-emergency contact: Primary Care Provider Call non-emergency contact if: you have any medication questions, your symptoms worsen and your pain is unusual for you Follow-up/Referrals: Sabine Spear MD [Primary Care Provider] - Diet: Regular Addtl Attending Provider Instructions: You were admitted to the hospital with chest pain. We have checked your heart enzymes (called troponins), EKGs, and done an ultrasound of your heart (echocardiogram) to rule out cardiac reasons for your chest pain. As those tests were all normal, we feel it is safe for you to go home at this time and follow up with your doctor outside of the hospital. We have sent a script of a medication called hydroxyzine to your pharmacy. This medication can be used as needed for anxiety. Please plan to follow up with your primary care doctor within 1 week of discharge from the hospital. Pending Studies at Discharge: No Stand-Alone Forms: My Epiphyte, Smoking Cessation Medications and DC Order Prescriptions: New hydroxyzine HCl 25 mg tablet 25 mg PO TID PRN (Reason: anxiety) Qty: 30 0RF Rx Instructions: May cause drowsiness. You may split the tablet in half to try half dose until you know how it affects you. Continued lisinopril 10 mg tablet 10 mg PO QAM metformin 500 mg tablet extended release 24 hr 1,000 mg PO BIDM dorzolamide 2 % drops 1 drp OPB BID riboflavin (vitamin B2) 400 mg Tablet 400 mg PO QAM timolol maleate (PF) 0.5 % dropperette 1 drp OPB BID Xiidra 5 % dropperette 1 drp OPB BID pravastatin 40 mg tablet 40 mg PO QPM magnesium oxide 400 mg (241.3 mg magnesium) tablet 400 mg PO HS omeprazole 20 mg capsule,delayed release(DR/EC) 20 mg PO AMHS brimonidine [Alphagan P] 0.1 % drops 1 drp OPB BID acetaminophen [Tylenol Extra Strength] 500 mg Tablet 1,000 mg PO Q6H PRN (Reason: Fever Or Pain) tamsulosin 0.4 mg capsule 0.4 mg PO QAM Discharge Orders: Discharge Order (Routine); Ordered 02/02/25 Ordered By: Danita Morley Admission Data Admit Date/Time: 02/01/25 21:02 Attending Provider: Jabari Nayak Admit Provider: Micaela Arellano Primary Care Provider: Sabine Spear Other Providers: Micaela Arellano Other Interventions: Discharge Summary Assessment (RN) Last Done: 02/02/25 17:48 Supervising Physician Co-Signing Physician Notes Patient was seen and examined independently I discussed the case with Danita Morley PGY 2 I reviewed pertinent past medical social family history and also the plan of care and agree with the plan of care. Patient had no further chest pain throughout the day we discussed her last stress test was at a time of increased stressors in her life she is doing intra stressors in her life currently. Serial troponins and echocardiogram without concern for acute VA as well as EKG. Subsequently the patient will be discharged home she was examined with a regular heart rate and clear lungs in the company of her for further outpatient evaluation of how stress impacts her physical health Will time to review the patient see the patient and complete discharge plans include 30 greater than 30 minutes Any exceptions will be noted below Resident Activity Tracking Resident Involvement: Resident Care Provided Care Provided: Adult Hospital Medicine
[2025-02-02 17:49] VITALS: BP 115/78; RESP 19
--- NOTE | 2025-02-02 19:10 | Billing Data ---
Date of Service February 02, 2025 Coding Level of Care Code 49224 INP/OBS DISCH >30 MIN
--- NOTE | 2025-02-03 19:18 | Electrocardiogram Report ---
Test Reason : Blood Pressure : */* mmHG Vent. Rate : 82 BPM Atrial Rate : 82 BPM P-R Int : 172 ms QRS Dur : 74 ms QT Int : 368 ms P-R-T Axes : 51 -23 53 degrees QTcB Int : 429 ms Normal sinus rhythm Cannot rule out Anterior infarct , age undetermined Abnormal ECG When compared with ECG of 21-Jul-2010 08:54, Questionable change in QRS axis Confirmed by Carlos Inman ([id number]) on 02/03/2025 7:17:36 PM Referred By: Confirmed By: Carlos Inman
== END 2025-02-02 17:48 | disposition home or self-care (01) ==
LOC: EDINP 12:12 → ED 12:12 → SUATTDRO 21:02 → EDINP 23:34